=== PATIENT | male | born 1965 | race Caucasian/White ===

== ENCOUNTER 2019-10-09 05:04 | Inpatient (IN) ==
--- NOTE | 2019-09-24 12:09 | PAT Medication Instructions ---
Medication Instructions Date of Service September 24, 2019 Home Medications diphenhydramine-acetaminophen [Tylenol PM Extra Strength] 3 - 4 tab PO HS PRN hydrochlorothiazide 25 mg PO QAM ibuprofen 800 mg PO UD PRN losartan 100 mg PO QAM ASK your surgeon for instructions ibuprofen 800 mg PO UD PRN DO NOT take the morning of surgery hydrochlorothiazide 25 mg PO QAM losartan 100 mg PO QAM Take evening before surgery diphenhydramine-acetaminophen [Tylenol PM Extra Strength] 3 - 4 tab PO HS PRN (if needed) Other Notes If you have any questions please call us at [phone] or [phone] or [phone] or [phone]
--- NOTE | 2019-09-25 13:53 | Anesthesiology Consultation ---
Date of Service September 25, 2019 Assessment & Plan (1) Encounter for pre-operative examination: PCP clearance 10/02/2019: "Patient presents for medical clearance for bilateral knee replacement on 10/09/2019. He was cleared by cardiology. We reviewed his blood work and chest x-ray. Patient considered low risk for upcoming procedure and is medically cleared." Cardiology clearance 09/06/2019: Patient has no cardiovascular symptoms. According to the ACC guidelines: RCRI class I: Approximately 0.4% risk of a major cardiovascular event with surgical intervention. Also with moderate activity (4-10 METS) class IIb indication that no further testing is required. Patient is low risk for bilateral knee replacement 10/08/2019. Chart Review Chart Review: Acceptable Risk for Surgery and Patient seen in Pre Admission Testing Teaching & Discussion Instructed NPO after midnight before surgery, except medications with 15 cc of water. Medication instructions provided according to the PAT guidelines. History Surgery Operation Date: 10/09/19 07:15 Proposed Procedures p Bilateral Total Knee Arthroplasty - Tremayne Gould, Height/Weight Height: 5 ft 8.5 in Weight: 87.3 kg Allergies Allergy/AdvReac Type Severity Reaction Status Date / Time etodolac Allergy Unknown ITCHINESS Verified 09/18/19 09:22 morphine AdvReac vomiting Verified 09/25/19 13:51 LODINE Allergy Unknown ITCHINESS Uncoded 09/18/19 09:05 Medications Home Medications Medication Instructions Recorded Confirmed Last Taken diphenhydramine-acetaminophen 3 - 4 tab PO HS PRN 09/18/19 09/18/19 Unknown [Tylenol PM Extra Strength] hydrochlorothiazide 25 mg PO QAM 09/18/19 09/18/19 09/18/19 ibuprofen 800 mg PO UD PRN 09/18/19 09/18/19 Unknown losartan 100 mg PO QAM 09/18/19 09/18/19 09/18/19 Past Medical History Medical History (Updated 10/03/19 @ 13:39 by Roberto Morris) Arthritis Hypertension Mild pulmonary hypertension Ochronosis 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 Pt seen by cardio prior to surgery for echo as disease can have cardiac manifestations. Echo normal other than mild PHTN Exercise / Class Metabolic Activity II 4-5 Yardwork/Stairs/Walk up hill (Denies CP or SOB with 1 FOS, does flight of 16 steps few times per day at home) Past Surgical History Surgical History History of appendectomy History of arthroplasty of right shoulder History of arthroscopy of right knee History of colonoscopy Past Anesthesia History No Hx of Anesthesia Complications History of PONV History of PONV (with TSA, maybe r/t morphine) Social History Smoking Status: Current every day smoker tobacco type: cigarettes Smoking cigarettes per day: 0.5PPD/ADVISED NPO Do You Dip or Chew Tobacco: No Hx Alcohol Use: Yes alcohol intake frequency: a few times a month Hx Substance Use: No substance use type: does not use Review of Systems Pt denies any recent chest pain, shortness of breath, palpitations, cough, fever or URI. Physical Exam Vital Signs BP: 114/81 P: 93bpm SPO2: 97% RA T: 98.5 F R: 16 ENMT Mouth: + dentition abnormality (missing several molars); no dental restorations, no chipped teeth and no loose teeth Thyromental Distance: > or= 3.5 Finger Breadths (4) Mallampati Class: III Neck normal visual inspection; neck extension not limited Respiratory normal respiratory effort Auscultation: lungs clear to auscultation bilaterally Cardiovascular Rate/Rhythm: regular rate and regular rhythm Heart Sounds: no murmur Vessels: no carotid bruit Testing Laboratory Results 09/25/19 14:03 09/25/19 14:03 PT 10.3 Seconds (9.0-12.0) 09/25/19 14:03 INR 1.0 (0.9-1.1) 09/25/19 14:03 APTT 27.5 Seconds (21.0-31.0) 09/25/19 14:03 Hemoglobin A1c 5.2 % (4.5-5.6) 09/25/19 14:03 Urine Color Yellow 09/25/19 14:03 Urine Appearance Clear (Clear) 09/25/19 14:03 Urine pH 5.5 (4.5-7.5) 09/25/19 14:03 Ur Specific [place] 1.018 (1.000-1.030) 09/25/19 14:03 Urine Protein Negative (Negative) 09/25/19 14:03 Urine Glucose (UA) Negative (Negative) 09/25/19 14:03 Urine Ketones Negative (Negative) 09/25/19 14:03 Urine Nitrite Negative (Negative) 09/25/19 14:03 Ur Leukocyte Esterase Trace (Negative) H 09/25/19 14:03 Urine WBC (Auto) 1-5 /hpf (0-5) 09/25/19 14:03 Urine RBC (Auto) 5-10 /hpf (0-4) H 09/25/19 14:03 U Hyaline Cast (Auto) 0 /lpf (0-5) 09/25/19 14:03 U Epithel Cells (Auto) 0-5 /lpf (0-5) 09/25/19 14:03 Urine Bacteria (Auto) Negative (Negative) 09/25/19 14:03 Blood Type A Positive 09/25/19 14:03 Antibody Screen NEGATIVE 09/25/19 14:03 Electrocardiogram Date: 09/06/19 Findings: + NSR @ (99bpm) Chest X-Ray Date: 09/25/19 Findings: + NAD Echocardiogram Date: 09/19/19 EF: 58% LVEF normal. Mild diastolic dysfunction. Impaired LV relaxation. Normal RV size and systolic function. Trileaflet aortic valve. The aortic cusps appear mildly thickened. Normal pulmonary artery size with estimated PASP 35 mmHg. Consistent with mild pulmonary hypertension. There is no significant valvular heart disease.
--- NOTE | 2019-09-25 14:28 | XRay Report ---
XR chest Pre-admission PA/Lat CLINICAL HISTORY: 53 years-old Male presenting with preoperative assessment. TECHNIQUE: PA and lateral views of the chest were obtained. COMPARISON: None. FINDINGS: Cardiomediastinal silhouette normal. Lungs and pleural spaces clear. Degenerative changes of the thor acic spine. Partially visualized right shoulder arthroplasty. Upper abdomen normal. IMPRESSION: 1. No acute cardiopulmonary disease. ACT 112: Negative or not required by law. Electronically signed by: Stephen Delgado M.D. 09/25/2019 2:26 PM
[2019-09-25 15:44] LABS: Basophils # (auto) 0.06 K/uL (0-0.2); Basophils % (auto) 0.9 %; Eosinophils # (auto) 0.28 K/uL (0-0.5); Hematocrit (blood only) 42.4 % (42-52); Hemoglobin 14.8 g/dL (14.0-18.0); Immature Granulocytes # (auto) 0.01 K/uL (0.00-0.02); Immature Granulocytes % (auto) 0.1 %; Lymphocytes # (auto) 1.87 K/uL (1.2-3.4); Lymphocytes % (auto) 26.7 %; Mean Corpuscular Hemoglobin 32.5 pg (25-34); Mean Corpuscular Hgb Conc 34.9 g/dL (32-36); Mean Platelet Volume 9.6 fL (7.4-10.4); Monocytes # (auto) 0.49 K/uL (0.11-0.59); Neutrophils % (auto) 61.3 %; Platelet Count 313 K/uL (130-400); RDW Coefficient of Variation 13.2 % (11.5-14.5); RDW Standard Deviation 44.9 fL (36.4-46.3); Red Blood Count 4.56 M/uL (4.7-6.1); White Blood Count 7.01 K/uL (4.8-10.8)
[2019-09-25 16:04] LABS: Partial Thromboplastin Time 27.5 Seconds (21.0-31.0); Prothrombin Time 10.3 Seconds (9.0-12.0)
[2019-09-25 16:39] LABS: Appearance Urine Clear (Clear); Bacteria Urine Automated Negative (Negative); Bilirubin Urine Negative (Negative); Blood Urine Negative (Negative); Cast Urine Automated 0 /lpf (0-5); Color Urine Yellow; Epithelial Cell Urine Auto 0-5 /lpf (0-5); Glucose Urine UA Negative (Negative); Ketones Urine Negative (Negative); Leukocyte Esterase Urine Trace (Negative); Nitrite Urine Negative (Negative); Protein Urine Negative (Negative); Specific Gravity Urine 1.018 (1.000-1.030); Urobilinogen Urine Negative (Negative); pH Urine 5.5 (4.5-7.5)
[2019-09-25 16:50] LABS: Calcium 9.5 mg/dl (8.5-10.1); Creatinine Clr Calc Pharmacy 106.5 ml/min; Est GFR (African American) 114.5; Est GFR (Non-African American) 98.8; Potassium 3.9 mmol/L (3.5-5.1)
[2019-09-26 06:26] LABS: Estimated Average Glucose 103 mg/dl; Hemoglobin A1C 5.2 % (4.5-5.6)
--- NOTE | 2019-10-07 11:02 | History & Physical Report ---
Date of Service October 07, 2019 Assessment & Plan (1) Degenerative joint disease of left knee: (2) Degenerative joint disease of knee, right: I have indicated the patient for bilateral total knee replacements. The risks, benefits and complications of surgery were explained to the patient which include but not limited to infection, acute blood loss, DVT/PE, injury to nerves, vessels, bone, soft tissue, arthrofibrosis, chronic pain, failure of the prosthesis, knee dislocation, leg length discrepancy, need for additional surgery, cardiac and pulmonary events and . The patient wished to proceed with surgery and informed consent was obtained at this time. We will plan for lovenox post-operatively for DVT prophylaxis. Upon discharge the patient will be discharged home with home health services. Appropriate clearances by PCP, cardio were obtained. Due to the large amount of HO posterior right knee we have asked vascular be available on day of surgery. MRI scan was obtained and reviewed pre-operatively History of Present Illness Chief Complaint: Bilateral knee pain/djd, osteochondromatosis Primary Care Provider: Sarah Loredo The patient is a 53 year old male who presents with complaints of severe bilateral knee pain and DJD. The patient has failed outpatient conservative treatments to this point which included NSAIDs, corticosteroid injections, PT and a home exercise walking program. The patient's pain and limited function have progressed to the point where they severely hinder their activities of daily living and they no longer tolerate exercise programs. They are requesting to proceed with bilateral total knee replacement surgery. Allergies Allergy/AdvReac Type Severity Reaction Status Date / Time etodolac Allergy Mild ITCHINESS Verified 10/09/19 05:32 morphine AdvReac Intermediate vomiting Verified 10/09/19 05:32 LODINE Allergy Mild ITCHINESS Uncoded 10/09/19 05:32 Home Medications Home Medications Medication Instructions Recorded Confirmed Type diphenhydramine-acetaminophen 3 - 4 tab PO HS PRN 09/18/19 10/09/19 History [Tylenol PM Extra Strength] hydrochlorothiazide 25 mg PO QAM 09/18/19 09/18/19 History ibuprofen 800 mg PO UD PRN 09/18/19 10/09/19 History losartan 100 mg PO QAM 09/18/19 09/18/19 History zponogtn-vlt-awklt-vit K-lycop 1 tab PO DAILY 10/09/19 10/09/19 History [Men's Multivitamin] Past Med/Surg History Medical History Arthritis Hypertension Mild pulmonary hypertension Ochronosis 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 Pt seen by cardio prior to surgery for echo as disease can have cardiac manifestations. Echo normal other than mild PHTN Surgical History History of appendectomy History of arthroplasty of right shoulder History of arthroscopy of right knee History of colonoscopy Social History Preferred Language: Portuguese Communication Ability: Effective Cab Supervisor Required: No Beliefs That Will Affect Care: None Current Living Situation: Family Other Information That Helps Us Care for You: Yes (15 STEPS AT HOME) Feels Safe at Home: Yes Smoking Status: Current every day smoker Tobacco Type: cigarettes ; Cigarettes Per Day: 0.5PPD/ADVISED NPO ; Do You Dip or Chew Tobacco: No ; Hx Alcohol Use: Yes Hx Substance Use: No Review of Systems Review of Systems: All systems reviewed & are unremarkable except as noted in HPI & below Constitutional: as per Subjective / HPI Physical Exam Physical Exam: LLE NVSI +EHL/FHL/TA/GS SILT grossly, +2 DP pulse, compartments soft NT, limited painful ROM, 0-105 degrees flexion, + creptius. RLE NVSI +EHL/FHL/TA/GS SILT grossly, +2 DP pulse, compartments soft NT, limited painful ROM, 0-110 degrees flexion, + crepitus. Constitutional: WD/WN, vitals as above Eyes: PERRL, conjunctivae normal, anicteric sclerae ENMT: external ear and nose normal, oropharynx normal Neck: trachea midline, no thyromegaly Respiratory: normal respiratory effort, lungs clear to auscultation Cardiovascular: RRR, no murmur, no edema Gastrointestinal (Abdomen): normal bowel sounds, soft, nontender, no hepatosplenomegaly Musculoskeletal: no cyanosis or clubbing, extremities motor strength 5/5 Skin: no rashes, warm and dry Neurologic: patellar DTR's 2+ bilat, sensation intact Psychiatric: A+Ox3, euthymic affect Lymphatic: no cervical or axillary lymphadenopathy Results & Data Diagnostic Findings Multiple views of bilateral knees demonstrates severe tricompartmental DJD with complete loss of the lateral and PF joint space. +osteophytes, +sclerosis, +subchondral cysts, +osteochondromatosis.
[2019-10-09] MEDS ORDERED: CEFAZOLIN 2000MG 2,000 MG/15 ML SYR IV SCH (06:00)
[2019-10-09] MEDS ORDERED: METOCLOPRAMIDE HCL 10 MG TABLET PO SCH (06:00)
[2019-10-09] MEDS ORDERED: ACETAMINOPHEN 500 MG TAB PO SCH (06:00)
[2019-10-09] MEDS ORDERED: GABAPENTIN 300 MG CAP PO SCH (06:00)
[2019-10-09] MEDS ORDERED: FAMOTIDINE 20 MG TAB PO SCH (06:00)
[2019-10-09] MEDS ORDERED: TRANEXAMIC ACID 1,000 MG **IV Intra-op IV SCH (06:00)
[2019-10-09] MEDS ORDERED: TRANEXAMIC ACID 1,000 MG **IV Pre-op IV SCH (06:00)
[2019-10-09] MEDS ORDERED: LR 500ML BOLUS, THEN 15ML/HR IV SCH (06:00)
[2019-10-09] MEDS ORDERED: CeleBREX 200 MG CAP PO SCH (06:00)
[2019-10-09] MEDS ORDERED: ROPIVACAINE 0.5% HCL/PF 150 MG, BUPIVACAINE 0.5% MPF 30 ML, EPINEPHrine 30MG/30ML (OR U... INSTIL SCH ×2 (06:00)
[2019-10-09] MEDS ORDERED: dexAMETHasone 4 MG TAB PO SCH (06:00)
[2019-10-09] MEDS ORDERED: METOCLOPRAMIDE HCL 10 MG TABLET ONE (06:20)
[2019-10-09] MEDS ORDERED: ROPIVACAINE 0.5% 5 MG/ML 30 ML VIAL ONE (06:34)
[2019-10-09] MEDS ORDERED: BUPIVACAINE 0.5 % 5 MG/1 ML PF 10ML VIAL ONE (06:34)
[2019-10-09] MEDS ORDERED: MIDAZOLAM HCL 1 MG/ML 2ML VIAL ONE ×2 (06:51→09:26)
[2019-10-09] MEDS ORDERED: PROPOFOL IV EMULSION 10 MG/ML 20 ML VIAL IV ONE ×5 (06:51→10:57)
[2019-10-09] MEDS ORDERED: ONDANSETRON INJ 2 MG/ML 2 ML VIAL IV PRN (06:55)
[2019-10-09] MEDS ORDERED: ATROPINE SULFATE 0.1 MG/ML 10ML SYR IV PRN (06:55)
[2019-10-09] MEDS ORDERED: ePHEDrine sulfate 50 MG/ML AMP IV PRN (06:55)
[2019-10-09] MEDS ORDERED: HYDROmorphone INJ 1 MG/ML SYRINGE IV PRN (06:55)
[2019-10-09] MEDS ORDERED: BACITRACIN INJ 50,000 UNIT VIAL ONE ×2 (07:00→09:52)
--- NOTE | 2019-10-09 07:00 | History & Physical Bridge Note ---
Date of Service October 09, 2019 History & Physical Bridge Note I have examined the patient, reviewed the History & Physical and in the interval since the performance of the History & Physical I have noted the following changes of clinical significance: no changes noted
[2019-10-09] MEDS ORDERED: fentaNYL citrate 100 MCG/2 ML VIAL ONE (09:23)
[2019-10-09] MEDS ORDERED: KETAMINE HCL INJ 50 MG/ML 10 ML VIAL ONE (09:26)
--- NOTE | 2019-10-09 11:20 | Post Operative Brief Note ---
Immediate Post Op Note v1 Date of Surgery October 09, 2019 Pre & Post Diagnosis Operation Date: 10/09/19 07:15 Pre-Op Diagnosis: BILATERAL KNEE OSTEOARTHRITIS Post-Op Diagnosis: BILATERAL KNEE OSTEOARTHRITIS I identified the patient and participated in the time-out.: Yes Procedure Operation Date: 10/09/19 07:15 Actual Procedures p Bilateral Total Knee Arthroplasty(Bilateral) - Tremayne Gould DO Surgeon Tremayne Gould DO [facility]merer Helper Brett Patel Estimated Blood Loss 140 (75cc right, 65cc left) Findings Consistent with Post-Op Diagnosis Fluids 900 cc LR Specimens L Knee -distal femur and proximal tibia bone cuts, multiple intra-capsular loose bodies, synovial tissue R knee -distal femur and proximal tibia with multiple intracapsular loose bodies and synovial tissue Drains Bravo Catheter Complications none Disposition Disposition: Recovery Room Overlapping Procedure I was present for: the critical portions of procedure. I was immediately available: during the entire case. Back up surgeon: was not required during procedure.
--- NOTE | 2019-10-09 11:26 | Operative Report ---
Post Operative Report Pre & Post Diagnosis Operation Date: 10/09/19 07:15 Pre-Op Diagnosis: BILATERAL KNEE OSTEOARTHRITIS Post-Op Diagnosis: BILATERAL KNEE OSTEOARTHRITIS I identified the patient and participated in the time-out.: Yes Procedure Operation Date: 10/09/19 07:15 Actual Procedures p Bilateral Total Knee Arthroplasty(Bilateral) - Tremayne Gould DO Surgeon Tremayne Gould DO [employer] Working Supervisor Brett Patel Estimated Blood Loss 140 (75cc right, 65cc left) Findings Consistent with Post-Op Diagnosis Fluids 900 cc LR Specimens R knee: proximal tibia and distal femur bone fragments L knee: proximal tibia and distal femur bone fragments Anesthesia Type Spinal MAC Complications none Disposition Disposition: Recovery Room Indications The patient is a 53 year old male who presents with complaints of severe bilateral knee pain and DJD with chronic osteochondromatosis and multiple intra- articular loose bodies. The patient has failed outpatient conservative treatments to this point which included NSAIDs, corticosteroid injections, PT and a home exercise walking program. The patient's pain and limited function have progressed to the point where they severely hinder their activities of daily living and they no longer tolerate exercise programs. They are requesting to proceed with bilateral total knee replacement surgery. I have indicated the patient for bilateral total knee replacements. The risks, benefits and complications of surgery were explained to the patient which include but not limited to infection, acute blood loss, DVT/PE, injury to nerves, vessels, bone, soft tissue, arthrofibrosis, chronic pain, failure of the prosthesis, knee dislocation, leg length discrepancy, need for additional surgery, cardiac and pulmonary events and . The patient wished to proceed with surgery and informed consent was obtained at this time. We will plan for lovenox post-operatively for DVT prophylaxis. Upon discharge the patient will be discharged home with home health services. Appropriate clearances by PCP, cardio were obtained. Due to the large amount of HO posterior right knee we have asked vascular be available on day of surgery. MRI scan was obtained and reviewed pre-operatively Description of Procedure COMPONENTS USED: Right knee: Alyce persona knee system: Femur size 11, Tibia size G tibial articulating surface 12 CPS, Patella 34 oval button Left knee: Alyce persona knee system: Femur size 10, Tibia size H tibial articulating surface 14 CPS, Patella 34 oval button Following induction of spine anesthesia, a tourniquet was applied to the proximal aspect of the patient's bilateral thighs and bilateral lower extremities prepped and draped in the usual sterile manner. A timeout was performed, patient identified and site baylee confirmed. Appropriate pre- operative IV antibiotics were given. The right limb was exsanguinated with an Esmarch bandage and tourniquet was inflated to 300 mmHg. A longitudinal midline incision was made over the anterior knee. Subcutaneous tissue was sharply dissected down to fascia. Electrocautery was used for hemostasis. Next a p arapatellar arthrotomy was performed. Patella was everted and the knee was flexed. There was significant hypertrophic synovium with synovitis. All articular cartilage and residual meniscus was either discolored or completely black in appearance with multiple loose bodies. A Dahl retractor was used to expose the synovium above on the anterior aspect of the femur and removed down to bone. Next, the anterior fat pad was removed to aid in visualization. The medial face of the tibia was cleared of soft tissue first with a Bovie and a gonsalez elevator. This tissue was retracted posteriorly using a blunt Hohmann. Extensive synovectomy was performed and multiple loose bodies were removed during this time. Next, the extra-medullary tibial cutting guide was placed to the anterior aspect of the tibia. The tibia resection level was set taking 2mm from the defective tibial condyle. Resection depth was once again confirmed with venecia wing. The medial and lateral collateral ligament was protected with two Hohmann retractors. The tibia guide was removed and proximal tibial bone fragment removed utilizing straight osteotome, electrocautery and Mabel. Next, the distal femur intramedullary canal was accessed utilizing the step drill. The intramedullary distal femur cutting guide was placed into the canal and pinned into place. The distal femur was cut on the 5 degree setting. Next the cutting guide was removed and the femur was sized. Care was taken to ensure appropriate ocular care aide all rotation and 5 degree holes were drilled. A size 11 4-in-1 cutting block was placed on the distal end of the femur and secured into place with two short headed screws. Two bent Hohmann retractors were placed to protect the medial and lateral collateral ligaments. The oscillating saw was used to cut anterior, posterior, anterior chamfer and posterior chamfer. The four and one cutting block was removed and bone fragments excised. Laminar propulsion engineer was placed laterally and the ACL and PCL were removed followed by the medial meniscus and posterior medial osteophytes. Aquamantys was utilized for any posterior medial bleeders and Orthomix injected into the posterior medial capsule. A laminar propulsion engineer was then placed in the medial compartment and the lateral meniscus and posterior osteophytes were removed. Aquamantys was utilized for any posterior lateral bleeders and Orthomix injected into the posterior lateral capsule. Next, drop nalini and spacer block were placed with the leg in flexion and extension to assess alignment and flexion/extension gaps. Next, the proximal tibia was assessed and two bent Hohmans were placed medial and lateral to aid in visualization. The appropriate tibia size and rotation was selected and a size G tibial plate was pinned into place with appropriate rotation. Preparation of the tibia was completed utilizing the matching tibial drill and broach. I then turned my attention back to the distal femur in a trial femoral component was impacted into place. Appropriate femoral width was assessed and selected. Next the femur PS box cut guide was placed and cut made with the reciprocal saw and the PS box provisional placed. A trial size 12 PS tibia articular tray was placed and varus-valgus balance assessed in 0 degrees of extension and 30, 60 and 90 degrees of flexion. A final tibial articular surface size 12 CPS was chosen. Assess was gained to the patella and caliper utilized to measure width. The patella reamer was utilized and remaining bone removed with oscillating saw. A size 34 oval patella button was selected and the patella pegs drilled. Trial patella button was placed and tracking was assessed. The knee was found to be well balanced, well aligned with excellent patella tracking. The trials were removed and final components were obtained and assembled. The knee was irrigated copiously with sterile saline solution mixed with bacitracin. Access to the proximal tibia was once again obtained utilizing to the Hohmans and the proximal tibia and distal femur were dried with lap sponges. The final components were cemented into place and all excess cement was removed. A trial tibial articular surface was placed while cemented hardened. Knee stability was once again assessed and the final component inserted. A Betadine soak was performed. After 3 minutes, the hip was once more irrigated with copious sterile saline solution with bacitracin. The knee was injected with half of the remaining Orthomix which includes a combination of Ropivicaine 0.5% 150mg, Bupivicaine 0.5%/Epinephrine 1:200,000 30ml, Toradol 30mg, Dexamethasone 4mg, Ketamine 10mg, Clonidine 100mcg and NSS 30ml solution. The capsulotomy was closed with #1 Vicryl followed by subcutaneous closure with 2-0 Vicryl suture . Skin closure was performed using elgin and a sterile dressing applied which included Silverlon, Webril and janey wrap. Tourniquet was deflated at 117 minutes. The patient tolerated the procedure well and was stable per anesthesia and the decision was made to continue with left total knee arthroplasty. A second timeout was performed, patient identified and site baylee confirmed. The left limb was exsanguinated with an Esmarch bandage and tourniquet was inflated to 300 mmHg. A longitudinal midline incision was made over the anterior knee. Subcutaneous tissue was sharply dissected down to fascia. Electrocautery was used for hemostasis. Next a parapatellar arthrotomy was performed. Patella was everted and the knee was flexed. There was significant hypertrophic synovium with synovitis. All articular cartilage and residual meniscus was either discolored or completely black in appearance with multiple loose bodies, similar to his right side. A Dahl retractor was used to expose the synovium above on the anterior aspect of the femur and removed down to bone. Next, the anterior fat pad was removed to aid in visualization. The medial face of the tibia was cleared of soft tissue first with a Bovie and a gonsalez elevator. This tissue was retracted posteriorly using a blunt Hohmann. Extensive synovectomy was performed and multiple loose bodies were removed during this time. Next, the extra-medullary tibial cutting guide was placed to the anterior aspect of the tibia. The tibia resection level was set taking 2mm from the defective tibial condyle. Resection depth was once again confirmed with venecia wing. The medial and lateral collateral ligament was protected with two Hohmann retractors. The tibia guide was removed and proximal tibial bone fragment removed utilizing straight osteotome, electrocautery and Mabel. Next, the distal femur intramedullary canal was accessed utilizing the step drill. The intramedullary distal femur cutting guide was placed into the canal and pinned into place. The distal femur was cut on the 5 degree setting. Next the cutting guide was removed and the femur was sized. Care was taken to ensure appropriate ocular care aide all rotation and 5 degree holes were drilled. A size 10 4-in-1 cutting block was placed on the distal end of the femur and secured into place with two short headed screws. Two bent Hohmann retractors were placed to protect the medial and lateral collateral ligaments. The oscillating saw was used to cut anterior, posterior, anterior chamfer and posterior chamfer. The four and one cutting block was removed and bone fragments excised. Laminar propulsion engineer was placed laterally and the ACL and PCL were removed followed by the medial meniscus and posterior medial osteophytes. Aquamantys was utilized for any posterior medial bleeders and Orthomix injected into the posterior medial capsule. A laminar propulsion engineer was then placed in the medial compartment and the lateral meniscus and posterior osteophytes were removed. Aquamantys was utilized for any posterior lateral bleeders and Orthomix injected into the posterior lateral capsule. Next, drop nalini and spacer block were placed with the leg in flexion and extension to assess alignment and flexion/extension gaps. Next, the proximal tibia was assessed and two bent Hohmans were placed medial and lateral to aid in visualization. The appropriate tibia size and rotation was selected and a size H tibial plate was pinned into place with appropriate rotation. Preparation of the tibia was completed utilizing the matching tibial drill and broach. I then turned my attention back to the distal femur in a trial femoral component was impacted into place. Appropriate femoral width was assessed and selected. Next the femur PS box cut guide was placed and cut made with the reciprocal saw and the PS box provisional placed. A trial size 12 PS tibia articular tray was placed and varus-valgus balance assessed in 0 degrees of extension and 30, 60 and 90 degrees of flexion. A final tibial articular surface size 14 CPS was chosen. Assess was gained to the patella and caliper utilized to measure width. The patella reamer was utilized and remaining bone removed with oscillating saw. A size 34 oval patella button was selected and the patella pegs drilled. Trial patella button was placed and tracking was assessed. The knee was found to be well balanced, well aligned with excellent patella tracking. The trials were removed and final components were obtained and assembled. The knee was irrigated copiously with sterile saline solution mixed with bacitracin. Access to the proximal tibia was once again obtained utilizing to the Hohmans and the proximal tibia and distal femur were dried with lap sponges. The final components were cemented into place and all excess cement was removed. A trial tibial articular surface was placed while cemented hardened. Knee stability was once again assessed and the final component inserted. A Betadine soak was performed. After 3 minutes, the hip was once more irrigated with copious sterile saline solution with bacitracin. The knee was injected with the rem aining Orthomix which includes a combination of Ropivicaine 0.5% 150mg, Bupivicaine 0.5%/Epinephrine 1:200,000 30ml, Toradol 30mg, Dexamethasone 4mg, Ketamine 10mg, Clonidine 100mcg and NSS 30ml solution. The capsulotomy was closed with #1 Vicryl followed by subcutaneous closure with 2-0 Vicryl suture . Skin closure was performed using elgin and a sterile dressing applied which included Silverlon, Webril and janey wrap. Tourniquet was deflated at 99 minutes. The patient tolerated the procedure well and was taken to the PACU in stable condition. Due to the complex nature of the procedure, the entire surgery was performed with the operational assistance of Brett patel PA-C. The traffic assistant, under direct supervision, was involved in the actual performance of all aspects of the surgical procedure including patient positioning, hemostasis, tissue retraction, instrument management and wound closure. I attest to the content of the Intraoperative Record and any orders documented therein. Any exceptions are noted below.
--- NOTE | 2019-10-09 12:07 | XRay Report ---
LEFT KNEE 2 VIEWS History: Left total knee arthroplasty. Degenerative arthritis. Postop. FINDINGS: The patient is status post a left total knee arthroplasty. The hardware is intact. No fract ure or dislocation. Skin elgin are in place. IMPRESSION: Left total knee arthroplasty. No evidence for hardware complication. ACT 112: Negative or not required by law. Electronically signed by: Antonio Son M.D. 10/09/2019 12:05 PM
--- NOTE | 2019-10-09 12:07 | XRay Report ---
RIGHT KNEE 2 VIEWS History: Right total knee arthroplasty. Degenerative arthritis. Postop. FINDINGS: The patient is status post a right total knee arthroplasty. The hardware is intact. No frac ture or dislocation. Skin elgin are in place. IMPRESSION: Right total knee arthroplasty. No evidence for hardware complication. ACT 112: Negative or not required by law. Electronically signed by: Antonio Son M.D. 10/09/2019 12:05 PM
--- NOTE | 2019-10-09 12:41 | Anesthesiology Progress Note ---
Date of Service October 09, 2019 Anesthesia Post Procedure Vital Signs Vital Signs: Temp Pulse Pulse Resp BP Pulse Ox 10/09/19 12:20 36.5 C 87 18 145/108 H 100 10/09/19 12:10 85 17 138/104 H 100 10/09/19 12:00 94 H 17 138/108 H 100 10/09/19 11:50 95 H 15 127/112 H 100 10/09/19 11:42 36.6 C 89 91 H 15 143/107 H 99 10/09/19 05:45 36.8 C 91 H 18 152/104 H 99 Pain Intensity Generalized: Pain Intensity: 3 Transfer of Care Handoff Completed per policy Notes Mental Status: alert / awake / arousable Patient Amnestic to Procedure: Yes Nausea / Vomiting: adequately controlled Pain: adequately controlled Airway Patency, RR, SpO2: stable & adequate BP & HR: stable & adequate Hydration State: stable & adequate Neuraxial Anesthesia: was administered and sensory block is resolving Anesthetic Complications: no major complications apparent
[2019-10-09] MEDS ORDERED: NALOXONE HCL 0.4 MG/1 ML VIAL/CARP IV PRN (12:45)
[2019-10-09] MEDS ORDERED: MAGNESIUM HYDROXIDE SUSP 30 ML UDC PO PRN (12:45)
[2019-10-09] MEDS ORDERED: bisacodyL 10 MG SUPP PR PRN (12:45)
[2019-10-09] MEDS: ACETAMINOPHEN 500 MG TAB PO SCH ×2 (13:58→21:44)
[2019-10-09] MEDS: SODIUM CHLORIDE 0.9% 1000ML 1,000 ML IV SCH ×2 (13:59→21:52)
[2019-10-09] MEDS: CEFAZOLIN 2000MG 2,000 MG/15 ML SYR IV SCH (16:25)
[2019-10-09] MEDS: DOCUSATE SODIUM 100 MG CAP PO SCH (20:19)
[2019-10-09] MEDS: SENNA 8.6 MG TAB PO SCH (20:19)
--- NOTE | 2019-10-09 21:49 | Orthopedic Progress Note ---
Date of Service October 09, 2019 Assessment & Plan (1) Degenerative joint disease of left knee: (2) Degenerative joint disease of knee, right: s/p bilateral TKA -ancef x 24 -DVT ppx: SCDs, TEDs, Lovenox daily -WBAT B/L LE -PT/OT -RLE paraesthesia/foot drop likely residual local/regional anesthesia, continue to monitor -Ice/elevation B/L LE -PO XR demonstrates well aligned well fixed bilateral prothesis without fracture/dislocation -am labs -DC planning Admission and Anticipated Discharge Date Admission Date: October 09, 2019 Subjective Post Operative Progress Note Patient seen sitting up in bed, comfortable, denies complaints, pain well controlled, no acute issues. Still feeling effects of local/regional anesthesia Review of Systems Review of Systems: All systems reviewed & are unremarkable except as noted in HPI & below Constitutional: as per Subjective / HPI Physical Exam Physical Exam: LLE NVSI +EHL/FHL/TA/GS SILT grossly, +2 DP pulse, compartments soft NT, dressing cdi. RLE NVSI FHL/GS decreased sensation plantar aspect right foot, +foot drop, +2 DP pulse, compartments soft NT, dressing cdi. Constitutional: WD/WN, vitals as above Results & Data ([facility]) Vital Signs (Past 12 Hours) Vital Signs Temp Pulse Pulse Resp BP Pulse Ox 10/09/19 19:18 36.7 C 114 H 16 122/87 99 10/09/19 15:40 36.8 C 108 H 16 137/87 99 10/09/19 14:24 114 H 18 134/87 98 10/09/19 13:33 88 18 150/108 H 100 10/09/19 13:01 89 18 146/107 H 100 10/09/19 12:35 36.6 C 91 H 18 136/94 100 10/09/19 12:20 36.5 C 87 18 145/108 H 100 10/09/19 12:10 85 17 138/104 H 100 10/09/19 12:00 94 H 17 138/108 H 100 10/09/19 11:50 95 H 15 127/112 H 100 10/09/19 11:42 36.6 C 89 91 H 15 143/107 H 99
[2019-10-10] MEDS: CEFAZOLIN 2000MG 2,000 MG/15 ML SYR IV SCH (00:16)
[2019-10-10] MEDS: ACETAMINOPHEN 500 MG TAB PO SCH ×3 (06:01→22:04)
[2019-10-10] MEDS: OXYCODONE HCL IR 5 MG TAB (IMMEDIATE RELEASE) PO PRN ×5 (06:04→22:02)
[2019-10-10 06:07] LABS: Hematocrit (blood only) 29.5 % (42-52); Hemoglobin 9.9 g/dL (14.0-18.0); Mean Corpuscular Hemoglobin 31.9 pg (25-34); Mean Corpuscular Hgb Conc 33.6 g/dL (32-36); Mean Corpuscular Volume 95.2 fL (80-100); Mean Platelet Volume 8.9 fL (7.4-10.4); Platelet Count 273 K/uL (130-400); RDW Coefficient of Variation 13.5 % (11.5-14.5); RDW Standard Deviation 46.4 fL (36.4-46.3); White Blood Count 10.64 K/uL (4.8-10.8)
[2019-10-10 06:45] LABS: BUN Creatinine Ratio 19.3 (10-20); Calcium 8.6 mg/dl (8.5-10.1); Creatinine Clr Calc Pharmacy 134.4 ml/min; Est GFR (African American) 125.8; Est GFR (Non-African American) 108.5; Potassium 3.8 mmol/L (3.5-5.1)
--- NOTE | 2019-10-10 08:36 | Orthopedic Progress Note ---
Date of Service October 10, 2019 Assessment & Plan (1) Degenerative joint disease of left knee: (2) Degenerative joint disease of knee, right: s/p bilateral TKA POD#1 -ancef x 24 -DVT ppx: SCDs, TEDs, Lovenox daily -WBAT B/L LE -PT/OT -RLE paraesthesia/foot drop resolved -Ice/elevation B/L LE -PO XR demonstrates well aligned well fixed bilateral prothesis without fracture/dislocation -am labs hgb 9.9, see above -DC planning - home with HH Admission and Anticipated Discharge Date Admission Date: October 09, 2019 Subjective Post Operative Progress Note Patient seen sitting up in bed, comfortable, denies complaints, pain well controlled, no acute issues. Numbing medicine wearng off, Denies F/C/N/V/SOB/CP. Review of Systems Review of Systems: All systems reviewed & are unremarkable except as noted in HPI & below Constitutional: as per Subjective / HPI Physical Exam Physical Exam: LLE NVSI +EHL/FHL/TA/GS SILT grossly, +2 DP pulse, compartments soft NT, dressing cdi. RLE NVSI +EHL/FHL/TA/GS SILT grossly, +2 DP pulse, compartments soft NT, dressing cdi. Constitutional: WD/WN, vitals as above Results & Data ([facility]) Vital Signs (Past 12 Hours) Vital Signs Temp Pulse Pulse Resp BP Pulse Ox 10/10/19 07:55 36.8 C 100 H 19 128/86 100 10/10/19 03:05 36.9 C 107 H 18 122/86 98 10/09/19 23:10 36.7 C 117 H 18 122/87 99 Laboratory Results 10/10/19 10/10/19 Range/Units 05:49 05:49 WBC 10.64 (4.8-10.8) K/uL RBC 3.10 L (4.7-6.1) M/uL Hgb 9.9 L (14.0-18.0) g/dL Hct 29.5 L (42-52) % MCV 95.2 (80-100) fL MCH 31.9 (25-34) pg MCHC 33.6 (32-36) g/dL RDW Std Deviation 46.4 H (36.4-46.3) fL RDW Coeff of Kae 13.5 (11.5-14.5) % Plt Count 273 (130-400) K/uL MPV 8.9 (7.4-10.4) fL Sodium 137 (136-145) mmol/L Potassium 3.8 (3.5-5.1) mmol/L Chloride 107 (98-107) mmol/L Carbon Dioxide 27 (21-32) mmol/L Anion Gap 3.0 (3-11) BUN 14 (7-18) mg/dl Creatinine 0.70 (0.6-1.4) mg/dl Est Cr Clr Drug Dosing 134.4 ml/min Est GFR ( Amer) 125.8 Est GFR (Non-Af Amer) 108.5 BUN/Creatinine Ratio 19.3 (10-20) Glucose 103 H (70-99) mg/dl Calcium 8.6 (8.5-10.1) mg/dl
[2019-10-10] MEDS: hydroCHLOROthiazide 25 MG TAB PO SCH (08:49)
[2019-10-10] MEDS: LOSARTAN POTASSIUM 50 MG TAB PO SCH (08:49)
[2019-10-10] MEDS: DOCUSATE SODIUM 100 MG CAP PO SCH ×2 (08:49→22:03)
[2019-10-10] MEDS: ENOXAPARIN INJ 40 MG/0.4 ML SYR SQ SCH (08:50)
[2019-10-10] MEDS: MULTIVITAMIN TAB PO SCH (08:53)
[2019-10-10] MEDS: CALCIUM CARBONATE 500 MG CHEWABLE TAB PO PRN (15:03)
[2019-10-10] MEDS: ONDANSETRON INJ 2 MG/ML 2 ML VIAL IV PRN (18:06)
[2019-10-10] MEDS: METOCLOPRAMIDE HCL INJ 5 MG/ML 2 ML VIAL IV PRN (19:19)
[2019-10-10] MEDS: SENNA 8.6 MG TAB PO SCH (22:04)
[2019-10-11] MEDS: CALCIUM CARBONATE 500 MG CHEWABLE TAB PO PRN ×3 (03:36→19:42)
[2019-10-11] MEDS: OXYCODONE HCL IR 5 MG TAB (IMMEDIATE RELEASE) PO PRN ×4 (05:02→22:55)
[2019-10-11] MEDS: ACETAMINOPHEN 500 MG TAB PO SCH ×3 (05:02→21:40)
[2019-10-11 06:04] LABS: Hematocrit (blood only) 23.7 % (42-52); Hemoglobin 8.1 g/dL (14.0-18.0); Mean Corpuscular Hgb Conc 34.2 g/dL (32-36); Mean Corpuscular Volume 93.7 fL (80-100); Platelet Count 225 K/uL (130-400); RDW Coefficient of Variation 13.8 % (11.5-14.5); RDW Standard Deviation 47.4 fL (36.4-46.3); Red Blood Count 2.53 M/uL (4.7-6.1); White Blood Count 10.87 K/uL (4.8-10.8)
[2019-10-11 06:41] LABS: BUN Creatinine Ratio 23.1 (10-20); Calcium 9.3 mg/dl (8.5-10.1); Creatinine Clr Calc Pharmacy 125.5 ml/min; Est GFR (African American) 122.2; Est GFR (Non-African American) 105.5; Potassium 4.1 mmol/L (3.5-5.1)
[2019-10-11] MEDS: ENOXAPARIN INJ 40 MG/0.4 ML SYR SQ SCH (07:56)
[2019-10-11] MEDS: MULTIVITAMIN TAB PO SCH (07:56)
[2019-10-11] MEDS: LOSARTAN POTASSIUM 50 MG TAB PO SCH (07:56)
[2019-10-11] MEDS: DOCUSATE SODIUM 100 MG CAP PO SCH ×2 (07:56→21:39)
[2019-10-11] MEDS: hydroCHLOROthiazide 25 MG TAB PO SCH (07:56)
--- NOTE | 2019-10-11 08:28 | Orthopedic Progress Note ---
Date of Service October 11, 2019 Assessment & Plan (1) Degenerative joint disease of left knee: (2) Degenerative joint disease of knee, right: s/p bilateral TKA POD#2 -Nausea-continue antiemetics. Will add Protonix with complaint of heartburn earlier. Consider narcotic change if patient symptoms persist. -ancef x 24 -DVT ppx: SCDs, TEDs, Lovenox daily -WBAT B/L LE -PT/OT -RLE paraesthesia/foot drop resolved -Ice/elevation B/L LE -PO XR demonstrates well aligned well fixed bilateral prothesis without fracture/dislocation -am labs hgb 8.1; Acute blood loss anemia. Preop hemoglobin was around 14. Plan for EKG this morning. Repeat hemoglobin and hematocrit ordered for later this afternoon. Consider transfusion if patient's symptoms persist or worsen. If there are any EKG changes, plan for medical consult. -DC planning - home with Admission and Anticipated Discharge Date Admission Date: October 09, 2019 Supervising Physician Co-Signing Physician Notes Patient seen and examined, agree with above assessment and plan. PE: RLE NVSI +EHL/FHL/TA/GS SILT grossly, +2 DP pulse, compartments soft NT, dressing cdi. LLE NVSI +EHL/FHL/TA/GS SILT grossly, +2 DP pulse, compartments soft NT, dressing cdi. A/P S/P B/L TKA -medical hospitalist consulted, tachycardia, post-op anemia -WBAT B/L LE -PT/OT -SCDs, TEDs, Lovenox -hgb 7.4, transfuse 2 units PRBC Subjective Postop day 2 status post bilateral total knee arthroplasties. Patient is currently sitting up at the bedside. He actually was reclining on pillows that were stacked up against the bed rail with his legs dangling over the bedside. Patient able to straighten himself up and sit upright without difficulty. He states that he has had a lack of sleep and does feel somewhat tired this morning. States he is having some nausea this morning and nursing also related that he had some heartburn. Current vital signs are showing tachycardia. Patient currently with acute blood loss anemia secondary from surgical loss and possible delusional effect. He denies any shortness of breath, chest pain, lightheadedness. He does state that he feels cold at times. Denies chills or rigors. Having some pain in the knees but appears to be controlled at this time. No other complaints at this time. Review of Systems Review of Systems: All systems reviewed & are unremarkable except as noted in HPI & below Constitutional: as per Subjective / HPI Physical Exam Physical Exam: Patient appears somewhat pale and looking tired. [place] dressings are clean, dry, and intact. Calves are soft nontender. Neurovascular is intact. He has good dorsiflexion and plantarflexion of both ankles and feet at this time. Vital signs show a BP of 134/84, pulse 115, respirations 18, temp 37.1 with O2 sats at 99 on room air. Constitutional: WD/WN, vitals as above Results & Data ([facility]) Vital Signs (Past 12 Hours) Vital Signs Temp Pulse Resp BP Pulse Ox 10/11/19 06:58 37.1 C 115 H 18 134/84 99 10/10/19 22:47 37.2 C 126 H 16 112/68 96 Laboratory Results Laboratory Results WBC 10.87 K/uL (4.8-10.8) H 10/11/19 05:45 RBC 2.53 M/uL (4.7-6.1) L 10/11/19 05:45 Hgb 8.1 g/dL (14.0-18.0) L 10/11/19 05:45 Hct 23.7 % (42-52) L 10/11/19 05:45 MCV 93.7 fL (80-100) 10/11/19 05:45 MCH 32.0 pg (25-34) 10/11/19 05:45 MCHC 34.2 g/dL (32-36) 10/11/19 05:45 RDW Std Deviation 47.4 fL (36.4-46.3) H 10/11/19 05:45 RDW Coeff of Kae 13.8 % (11.5-14.5) 10/11/19 05:45 Plt Count 225 K/uL (130-400) 10/11/19 05:45 MPV 9.0 fL (7.4-10.4) 10/11/19 05:45 Immature Gran % (Auto) 0.1 % 09/25/19 14:03 Neut % (Auto) 61.3 % 09/25/19 14:03 Lymph % (Auto) 26.7 % 09/25/19 14:03 [place] % (Auto) 7.0 % 09/25/19 14:03 Eos % (Auto) 4.0 % 09/25/19 14:03 Baso % (Auto) 0.9 % 09/25/19 14:03 Immature Gran # (Auto) 0.01 K/uL (0.00-0.02) 09/25/19 14:03 Neut # (Auto) 4.30 K/uL (1.4-6.5) 09/25/19 14:03 Lymph # (Auto) 1.87 K/uL (1.2-3.4) 09/25/19 14:03 [place] # (Auto) 0.49 K/uL (0.11-0.59) 09/25/19 14:03 Eos # (Auto) 0.28 K/uL (0-0.5) 09/25/19 14:03 Baso # (Auto) 0.06 K/uL (0-0.2) 09/25/19 14:03 PT 10.3 Seconds (9.0-12.0) 09/25/19 14:03 INR 1.0 (0.9-1.1) 09/25/19 14:03 APTT 27.5 Seconds (21.0-31.0) 09/25/19 14:03 PTT Ratio 1.0 09/25/19 14:03 Sodium 134 mmol/L (136-145) L 10/11/19 05:45 Potassium 4.1 mmol/L (3.5-5.1) 10/11/19 05:45 Chloride 102 mmol/L (98-107) 10/11/19 05:45 Carbon Dioxide 28 mmol/L (21-32) 10/11/19 05:45 Anion Gap 4.0 (3-11) 10/11/19 05:45 BUN 17 mg/dl (7-18) 10/11/19 05:45 Creatinine 0.75 mg/dl (0.6-1.4) 10/11/19 05:45 Est Cr Clr Drug Dosing 125.5 ml/min 10/11/19 05:45 Est GFR ( Amer) 122.2 10/11/19 05:45 Est GFR (Non-Af Amer) 105.5 10/11/19 05:45 BUN/Creatinine Ratio 23.1 (10-20) H 10/11/19 05:45 Glucose 110 mg/dl (70-99) H 10/11/19 05:45 Estimat Average Glucose 103 mg/dl 09/25/19 14:03 Hemoglobin A1c 5.2 % (4.5-5.6) 09/25/19 14:03 Calcium 9.3 mg/dl (8.5-10.1) 10/11/19 05:45 Albumin 3.8 gm/dl (3.4-5.0) 09/25/19 14:03 Urine Color Yellow 09/25/19 14:03 Urine Appearance Clear (Clear) 09/25/19 14:03 Urine pH 5.5 (4.5-7.5) 09/25/19 14:03 Ur Specific [place] 1.018 (1.000-1.030) 09/25/19 14:03 Urine Protein Negative (Negative) 09/25/19 14:03 Urine Glucose (UA) Negative (Negative) 09/25/19 14:03 Urine Ketones Negative (Negative) 09/25/19 14:03 Urine Blood Negative (Negative) 09/25/19 14:03 Urine Nitrite Negative (Negative) 09/25/19 14:03 Urine Bilirubin Negative (Negative) 09/25/19 14:03 Urine Urobilinogen Negative (Negative) 09/25/19 14:03 Ur Leukocyte Esterase Trace (Negative) H 09/25/19 14:03 Urine WBC (Auto) 1-5 /hpf (0-5) 09/25/19 14:03 Urine RBC (Auto) 5-10 /hpf (0-4) H 09/25/19 14:03 U Hyaline Cast (Auto) 0 /lpf (0-5) 09/25/19 14:03 U Epithel Cells (Auto) 0-5 /lpf (0-5) 09/25/19 14:03 Urine Bacteria (Auto) Negative (Negative) 09/25/19 14:03 Blood Type A Positive 09/25/19 14:03 Antibody Screen NEGATIVE 09/25/19 14:03
[2019-10-11] MEDS: PANTOprazole 40 MG TAB PO SCH (10:14)
[2019-10-11] MEDS: ONDANSETRON INJ 2 MG/ML 2 ML VIAL IV PRN (11:09)
[2019-10-11] MEDS: METOCLOPRAMIDE HCL INJ 5 MG/ML 2 ML VIAL IV PRN (12:40)
[2019-10-11] MEDS: HYDROmorphone INJ 0.5 MG/0.5 ML SYR IV PRN ×2 (13:25→21:44)
[2019-10-11 14:59] LABS: Hematocrit (blood only) 21.3 % (42-52); Hemoglobin 7.4 g/dL (14.0-18.0)
[2019-10-11] MEDS ORDERED: SODIUM CHLORIDE 0.9% 250 ML IV PRN (15:46)
--- NOTE | 2019-10-11 17:52 | Hospitalist Consultation ---
Date of Consultation October 11, 2019 Assessment & Plan (1) Ochronosis: - Resultant in connective tissues issues; now S/P B/L TKA on 10/08 - Overall doing well post-operatively; mildly tachy and having some nausea/vomiting that he relates to medications - Continue pain control/nausea control/bowel regimen; could consider Maalox or GI cocktail but seems TUMS working well per patient report - EKG with sinus tach and now ischemic changes - nonspecific changes in leads III, aVF but no reciprocal changes elsewhere - possibly findings are lead placement - Surgical management per primary team - Discussed with Alvaro Alvarenga PA-C - Rarely does this condition affect the heart however can cause aortic stenosis - reviewed outpatient echocardiogram - no significant valvular issues - DVT prophylaxis - Lovenox; EBL 150 cc (2) Acute blood loss anemia: - Given the tachycardia, nausea/vomiting, fatigue this is likely related to drastic swing in his counts; suspect surgical losses and some dilutional effects - Pre-operative Hgb 14 and currently at 7.4 - typically not a level we would transfuse but given this rapid shift in labs would expect to be symptomatic - Discussed with patient - will transfuse 2 units PRBC and reassess labs in AM - so far HR already improving some down to 105 bpm on most recent labs (3) Hypertension: - STABLE - Continue HCTZ 25 mg daily and Losartan 100 mg daily Hospitalists will continue to follow Supervising Physician Co-Signing Physician Notes Patient seen and examined with Kathy LOJA. I agree with her exam findings, review of systems, assessment and plan. I personally reviewed the lab work and imaging as well. patient feeling okay, no chest pain, no dyspnea he is tachycardic on exam in the 110's he does not feel light headed he is nauseated, not eating well, says he always gets this way after anesthesia labs showed a significant drop in Hb, down to 8.1, then repeat was 7.5 he continued to be tachycardic, agreed to PRBC transfusion - Acute blood loss anemia as cause of post operative anemia symptomatic with weakness, tachycardia, nausea will transfuse two units PRBC, repeat H/H in the morning will continue to follow closely while hospitalized History of Present Illness Reason for Consultation: Anemia/Med Management Attending Physician: Tremayne Gould DO History of Present Illness Mr. Beatty is a 53 y/o male with PMHx of Ochronosis, mild Pulmonary HTN, and HTN who is S/P B/L TKA on 10/08. For the most part doing well post-operatively. However reporting nausea, heartburn, and fatigue today. Preoperative Hgb was 14 and continues to trend down and currently at 7.4. BP is stable but remains slightly tachy. EKG with sinus tach without signs of ischemia. Some nonspecific changes in leads III, aVF however no reciprocal changes. Patient denies cardiac history. Tums and ice cream seem to be relieving his heart burn. He does report having nausea and vomiting when he had his shoulder done previously and feels that its medication induced. When ambulating today he was reported to be pale and did have an episode of vomiting. Discussed Hgb findings and how his counts are about half his pre-operative levels and agrees to blood transfusion. Will transfuse 2 units and assess Hgb in AM. He denies H/O CHF, DVT, PE. Discussed with Alvaro Alvarenga PA-C. Allergies Allergy/AdvReac Type Severity Reaction Status Date / Time etodolac Allergy Mild ITCHINESS Verified 10/09/19 05:32 morphine AdvReac Intermediate vomiting Verified 10/09/19 05:32 Home Medications Home Medications Medication Instructions Recorded Confirmed Type diphenhydramine-acetaminophen 3 - 4 tab PO HS PRN 09/18/19 10/09/19 History [Tylenol PM Extra Strength] hydrochlorothiazide 25 mg PO QAM 09/18/19 09/18/19 History ibuprofen 800 mg PO UD PRN 09/18/19 10/09/19 History losartan 100 mg PO QAM 09/18/19 09/18/19 History rniogbll-ejh-ehjlh-vit K-lycop 1 tab PO DAILY 10/09/19 10/09/19 History [Men's Multivitamin] acetaminophen 1,000 mg PO Q8 PRN #90 tab 10/10/19 Rx enoxaparin 40 mg SUBCUT Q24H #28 syr 10/10/19 Rx oxycodone 5 mg PO Q6H PRN #30 tab MDD 4 tabs 10/10/19 Rx sennosides [Senokot] 17.2 mg PO HS PRN #28 tab 10/10/19 Rx Patient History Medical History Arthritis Hypertension Mild pulmonary hypertension Ochronosis 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 Pt seen by cardio prior to surgery for echo as disease can have cardiac manifestations. Echo normal other than mild PHTN Surgical History History of appendectomy History of arthroplasty of right shoulder History of arthroscopy of right knee History of colonoscopy Family History (Updated 10/11/19 @ 18:01 by Kathy Iniguez PA-C) Other Family history non-contributory Social History Preferred Language: Welsh Communication Ability: Effective Directional Bore Operator Required: No Beliefs That Will Affect Care: None marital status: Current Living Situation: Family Other Information That Helps Us Care for You: Yes (15 STEPS AT HOME) Feels Safe at Home: Yes Smoking Status: Current every day smoker Tobacco Type: cigarettes ; Cigarettes Per Day: 0.5PPD/ADVISED NPO ; Do You Dip or Chew Tobacco: No ; Hx Alcohol Use: Yes Hx Substance Use: No Review of Systems Constitutional: + fatigue and + anorexia; no fever and no chills Eyes: no worsening vision Ear, Nose, Mouth, Throat: no nasal congestion, no sore throat and no dysphagia Respiratory: no cough and no dyspnea Cardiovascular: no chest pain, no palpitations and no lightheadedness Gastrointestinal: + heartburn, + nausea and + vomiting; no abdominal pain, no constipation and no diarrhea/loose stools Genitourinary: no dysuria Musculoskeletal: + joint pain (knees - controlled with medications) Integumentary: no rash Neurologic: no tingling and no numbness Physical Exam Constitutional: WD/WN, vitals as above no acute distress Eyes: + anicteric sclerae ENMT: Ears: no hearing impairment Neck: trachea midline Respiratory: normal respiratory effort, lungs clear to auscultation Cardiovascular: Rate/Rhythm: regular rate and + tachycardic Heart Sounds: no murmur Vessels: no JVD Gastrointestinal (Abdomen): Inspection/Auscultation: normal bowel sounds Percussion/Palpation: abdomen soft; abdomen nontender Musculoskeletal: Head/Neck/Chest: normocephalic and head atraumatic Skin: no rashes, warm and dry + pallor Neurologic: moves all extremities Psychiatric: A+Ox3, euthymic affect Results & Data ([facility]) Vital Signs (Past 12 Hours) Vital Signs Temp Pulse Pulse Resp BP BP Pulse Ox 10/11/19 17:39 37.4 C 113 H 18 100/69 100 10/11/19 16:18 37.4 C 115 H 16 102/68 100 10/11/19 06:58 37.1 C 115 H 18 134/84 99 PG Care Time/CCT Total # of Minutes Spent Total Time Spent with Patient: Total time spent is greater than 50% in coordination of care (as documented) at patient's floor/unit and/or counseling patient: Coding Level of Care Code 83357 Inpt Consult Level 3 Diagnoses Ochronosis E70.29 Acute blood loss anemia D62 Hypertension I10
--- NOTE | 2019-10-11 18:06 | Electrocardiogram Report ---
Test Reason : Blood Pressure : / mmHG Vent. Rate : 108 BPM Atrial Rate : 108 BPM P-R Int : 112 ms QRS Dur : 088 ms QT Int : 314 ms P-R-T Axes : 047 048 027 degrees QTc Int : 420 ms Sinus tachycardia Otherwise normal ECG No previous ECGs available Confirmed by Kishore Dias ([id number]) on 10/11/2019 6:05:31 PM Referred By: Tremayne Gould Confirmed By:Kishore Dias
[2019-10-11] MEDS: SENNA 8.6 MG TAB PO SCH (21:39)
[2019-10-12] MEDS: OXYCODONE HCL IR 5 MG TAB (IMMEDIATE RELEASE) PO PRN ×4 (04:13→17:06)
[2019-10-12 05:58] LABS: Hematocrit (blood only) 25.4 % (42-52); Hemoglobin 8.7 g/dL (14.0-18.0); Mean Corpuscular Hemoglobin 31.2 pg (25-34); Mean Corpuscular Hgb Conc 34.3 g/dL (32-36); Mean Platelet Volume 8.5 fL (7.4-10.4); Platelet Count 192 K/uL (130-400); RDW Coefficient of Variation 13.9 % (11.5-14.5); RDW Standard Deviation 46.2 fL (36.4-46.3); Red Blood Count 2.79 M/uL (4.7-6.1); White Blood Count 9.63 K/uL (4.8-10.8)
[2019-10-12] MEDS: ACETAMINOPHEN 500 MG TAB PO SCH ×2 (06:08→14:46)
[2019-10-12 06:38] LABS: BUN Creatinine Ratio 22.1 (10-20); Calcium 9.3 mg/dl (8.5-10.1); Creatinine Clr Calc Pharmacy 151.8 ml/min; Est GFR (African American) 132.2; Est GFR (Non-African American) 114.1; Potassium 3.7 mmol/L (3.5-5.1)
[2019-10-12] MEDS: MULTIVITAMIN TAB PO SCH ×2 (07:38→08:28)
[2019-10-12] MEDS: hydroCHLOROthiazide 25 MG TAB PO SCH ×2 (07:38→08:29)
[2019-10-12] MEDS: LOSARTAN POTASSIUM 50 MG TAB PO SCH ×2 (07:39→08:29)
[2019-10-12] MEDS: DOCUSATE SODIUM 100 MG CAP PO SCH ×2 (07:39→08:28)
[2019-10-12] MEDS: PANTOprazole 40 MG TAB PO SCH ×2 (07:39→08:29)
[2019-10-12] MEDS: ENOXAPARIN INJ 40 MG/0.4 ML SYR SQ SCH (07:40)
[2019-10-12] MEDS: ONDANSETRON INJ 2 MG/ML 2 ML VIAL IV PRN ×2 (07:43→18:36)
[2019-10-12] MEDS: CALCIUM CARBONATE 500 MG CHEWABLE TAB PO PRN (10:22)
--- NOTE | 2019-10-12 11:57 | Hospitalist Progress Note ---
Date of Service October 12, 2019 Assessment & Plan (1) Ochronosis: - Resultant in connective tissues issues; now S/P B/L TKA on 10/08 - Overall doing well post-operatively; HR improved and having some nausea/vomiting that he relates to medications - Continue pain control/nausea control/bowel regimen; could consider Maalox or GI cocktail but seems TUMS resolved the acid reflux; seems like ice cream calms the stomach but mostly gets nauseous after taking medications - EKG with sinus tach and no ischemic changes - nonspecific changes in leads III, aVF but no reciprocal changes elsewhere - possibly findings are lead placement - Surgical management per primary team - Discussed with Alvaro Alvarenga PA-C - Rarely does this condition affect the heart however can cause aortic stenosis - reviewed outpatient echocardiogram - no significant valvular issues - DVT prophylaxis - Lovenox; EBL 150 cc (2) Acute blood loss anemia: - Given the tachycardia, nausea/vomiting, fatigue this is likely related to drastic swing in his counts; suspect surgical losses and some dilutional effects - Pre-operative Hgb 14 and dropped to 7.4 - typically not a level we would transfuse but given this rapid shift in labs would expect to be symptomatic - Transfused 2 units PRBC and Hgb now at 8.7 - suspect this will continue to trend up over coming days/weeks (3) Hypertension: - STABLE - Continue HCTZ 25 mg daily and Losartan 100 mg daily Hospitalists will continue to follow. No medical contraindication for discharge if orthopedically ready Admission and Anticipated Discharge Date Admission Date: October 09, 2019 Subjective Reports feeling well today. Hgb improved to 8.7 after transfusion. HR improved. States pain is largely controlled. Still reduced appetite. Feels sick after taking pills and the same thing happened with his last surgery. No CP or SOB. Reflux symptoms are resolved today. Ice cream seems to help the upset stomach. He verbalizes no new complaints Review of Systems Constitutional: no fever and no chills Respiratory: no cough and no dyspnea Cardiovascular: no chest pain, no palpitations and no lightheadedness Gastrointestinal: + nausea; no abdominal pain, no heartburn, no vomiting, no constipation and no diarrhea/loose stools Genitourinary: no dysuria Musculoskeletal: + joint pain (knees - controlled with medications) Integumentary: no rash Neurologic: no tingling and no numbness Physical Exam Constitutional: WD/WN, vitals as above no acute distress Eyes: + anicteric sclerae ENMT: Ears: no hearing impairment Neck: trachea midline Respiratory: normal respiratory effort, lungs clear to auscultation Cardiovascular: Rate/Rhythm: regular rate and + tachycardic Heart Sounds: no murmur Vessels: no JVD Gastrointestinal (Abdomen): Inspection/Auscultation: normal bowel sounds Percussion/Palpation: abdomen soft; abdomen nontender Musculoskeletal: Head/Neck/Chest: normocephalic and head atraumatic Skin: no rashes, warm and dry Neurologic: moves all extremities Psychiatric: A+Ox3, euthymic affect Results & Data ([facility]) Vital Signs (Past 12 Hours) Vital Signs Temp Pulse Pulse Resp BP BP Pulse Ox 10/12/19 06:22 36.7 C 98 H 16 122/73 95 10/12/19 00:00 37.1 C 101 H 16 106/66 98 PG Care Time/CCT Total # of Minutes Spent Total Time Spent with Patient: Total time spent is greater than 50% in coordination of care (as documented) at patient's floor/unit and/or counseling patient: Coding Level of Care Code 36526 Inpt Consult Level 2 Diagnoses Ochronosis E70.29 Acute blood loss anemia D62 Hypertension I10
--- NOTE | 2019-10-12 13:52 | Orthopedic Progress Note ---
Date of Service October 12, 2019 Assessment & Plan (1) Degenerative joint disease of left knee: (2) Degenerative joint disease of knee, right: s/p bilateral TKA POD#3 -Nausea-continue antiemetics. Improving -med recs appreciated, cardio recs appreciated -ancef x 24 -DVT ppx: SCDs, TEDs, Lovenox daily -WBAT B/L LE -PT/OT -RLE paraesthesia/foot drop resolved -Ice/elevation B/L LE -PO XR demonstrates well aligned well fixed bilateral prothesis without fracture/dislocation -am labs hgb 8.7, see above s/p 2 units PRBC -DC planning - home with HH Admission and Anticipated Discharge Date Admission Date: October 09, 2019 Subjective Post Operative Progress Note Patient seen ambulating in room, comfortable, c/0 N/V this am after breakfast, feeling better, pain well controlled, no acute issues. Currently denies N/V/F/C/SOB/CP Review of Systems Review of Systems: All systems reviewed & are unremarkable except as noted in HPI & below Constitutional: as per Subjective / HPI Physical Exam Physical Exam: LLE NVSI +EHL/FHL/TA/GS SILT grossly, +2 DP pulse, compartments soft NT, dressing cdi. RLE NVSI +EHL/FHL/TA/GS SILT grossly, +2 DP pulse, compartments soft NT, dr ramirez cdi. Constitutional: WD/WN, vitals as above Eyes: PERRL, conjunctivae normal, anicteric sclerae ENMT: external ear and nose normal, oropharynx normal Neck: trachea midline, no thyromegaly Respiratory: normal respiratory effort, lungs clear to auscultation Cardiovascular: RRR, no murmur, no edema Gastrointestinal (Abdomen): normal bowel sounds, soft, nontender, no hepa tosplenomegaly Musculoskeletal: no cyanosis or clubbing, extremities motor strength 5/5 Skin: no rashes, warm and dry Neurologic: patellar DTR's 2+ bilat, sensation intact Psychiatric: A+Ox3, euthymic affect Lymphatic: no cervical or axillary lymphadenopathy Results & Data ([facility]) Vital Signs (Past 12 Hours) Vital Signs Temp Pulse Pulse Resp BP BP Pulse Ox 10/12/19 12:04 36.8 C 107 H 18 118/80 99 10/12/19 06:22 36.7 C 98 H 16 122/73 95 Laboratory Results 10/12/19 10/12/19 10/11/19 Range/Units 05:46 05:46 14:38 WBC 9.63 (4.8-10.8) K/uL RBC 2.79 L (4.7-6.1) M/uL Hgb 8.7 L 7.4 L (14.0-18.0) g/dL Hct 25.4 L 21.3 L (42-52) % MCV 91.0 (80-100) fL MCH 31.2 (25-34) pg MCHC 34.3 (32-36) g/dL RDW Std Deviation 46.2 (36.4-46.3) fL RDW Coeff of Kae 13.9 (11.5-14.5) % Plt Count 192 (130-400) K/uL MPV 8.5 (7.4-10.4) fL Sodium 130 L (136-145) mmol/L Potassium 3.7 (3.5-5.1) mmol/L Chloride 96 L (98-107) mmol/L Carbon Dioxide 30 (21-32) mmol/L Anion Gap 4.0 (3-11) BUN 14 (7-18) mg/dl Creatinine 0.62 (0.6-1.4) mg/dl Est Cr Clr Drug Dosing 151.8 ml/min Est GFR ( Amer) 132.2 Est GFR (Non-Af Amer) 114.1 BUN/Creatinine Ratio 22.1 H (10-20) Glucose 93 (70-99) mg/dl Calcium 9.3 (8.5-10.1) mg/dl Blood Type Antibody Screen Crossmatch 10/09/19 Range/Units 05:29 WBC (4.8-10.8) K/uL RBC (4.7-6.1) M/uL Hgb (14.0-18.0) g/dL Hct (42-52) % MCV (80-100) fL MCH (25-34) pg MCHC (32-36) g/dL RDW Std Deviation (36.4-46.3) fL RDW Coeff of Kae (11.5-14.5) % Plt Count (130-400) K/uL MPV (7.4-10.4) fL Sodium (136-145) mmol/L Potassium (3.5-5.1) mmol/L Chloride (98-107) mmol/L Carbon Dioxide (21-32) mmol/L Anion Gap (3-11) BUN (7-18) mg/dl Creatinine (0.6-1.4) mg/dl Est Cr Clr Drug Dosing ml/min Est GFR ( Amer) Est GFR (Non-Af Amer) BUN/Creatinine Ratio (10-20) Glucose (70-99) mg/dl Calcium (8.5-10.1) mg/dl Blood Type A Positive Antibody Screen NEGATIVE Crossmatch See Detail
--- NOTE | 2019-10-12 17:35 | Discharge Summary ---
Date of Service October 12, 2019 Admission HPI Per Admitting Provider The patient is a 53 year old male who presents with complaints of severe bilateral knee pain and DJD with hx for osteochondromatosis. The patient has failed outpatient conservative treatments to this point which included NSAIDs, corticosteroid injections, PT and a home exercise walking program. The patient's pain and limited function have progressed to the point where they severely hinder their activities of daily living and they no longer tolerate exercise programs. They are requesting to proceed with bilateral total knee replacement surgery. Principal Diagnosis Bilateral total knee replacements -bilateral knee djd/osteochondromatosis Discharge Exam LLE NVSI +EHL/FHL/TA/GS SILT grossly, +2 DP pulse, compartments soft NT, dressing cdi. RLE NVSI +EHL/FHL/TA/GS SILT grossly, +2 DP pulse, compartments soft NT, dressing cdi. Constitutional WD/WN, vitals as above Discharge Data Allergies Allergy/AdvReac Type Severity Reaction Status Date / Time etodolac Allergy Mild ITCHINESS Verified 10/09/19 05:32 morphine AdvReac Intermediate vomiting Verified 10/09/19 05:32 Consultations 10/09/19 12:45 Consult Case Management - Discharge Planning Routine 10/11/19 08:57 Consult Hospitalist Routine Procedures Performed Operation Date: 10/09/19 07:15 Actual Procedures p Bilateral Total Knee Arthroplasty(Bilateral) - Tremayne Gould DO Ordered Studies 10/09/19 05:00 US - OR guided needle [facility] Urgent Hospital Course (1) Degenerative joint disease of left knee: (2) Degenerative joint disease of knee, right: The patient is a 53 -year-old male who presents with long standing history of severe bilateral knee DJD/osteochromatosis and failed outpatient conservative treatments. The patient's symptoms have progressed to the point where it has been difficult to perform even normal activities of daily living. I indicated the patient for bilateral total knee arthroplasties, the risks, bene fits and complications of the procedure include but not limited to infection, bleeding, damage to bone, nerves, vessels, surrounding soft tissue, may develop blood clots, loss of function, leg length discrepancy, dislocation, failure of the components, loosening of the components, the need for additional surgery and . The patient wished to proceed with surgery at this time and informed consent was obtained. Hospital Course: On 3/3/20 the patient was taken to the operating room, adequate anesthesia administered and underwent bilateral total knee arthroplasties. The patient tolerated the procedure well and was taken to the PACU in stable condition. Post-operatively the patient was started on a DVT ppx medication and given appropriate IV antibiotics. Consults were placed to medical hospitalist, physical therapy, occupational therapy and case management. On POD#1, the patient did well overnight and their pain was well controlled. Labs were drawn and the Hgb was 9.9. The patient progressed well with PT. On POD#2, The patient had increasing pain/tachycardia and nausea with vomiting. Consultation placed to medical hospitalist. Labs were drawn, hgb 8.1. Anemia s econdary to acute blood loss and dilutional effect. Recheck hgb 7.4 and the patient was transfused 2 units of PRBCs. On POD#3, the patient did well overnight had mild complaints of nausea which i mproved as the day went on. Pain well controlled and he continued to progress with PT. Labs were drawn and hgb was 8.7. Dressings were changed at this time and the incision was clean, dry and intact. The patient was deemed stable by the orthopedic team and consultants to be discharged home with on 10/12/19. Discharge Instructions: Upon discharge the patient may weight bear as tolerates through their operative extremities. They were instructed to keep the incision clean and dry at all times. The patient may shower but should not submerge the incision, avoid bathing, pools and hot tubes. The patient was given a script for pain medication and should take as instructed. The patient was given a script for DVT ppx Lovenox 40mg daily and should take as directed. The patient was in structed to not drive or travel for long distances until cleared to do so. If the patient develops any symptoms of fevers, chills, nausea, vomiting, increased redness, swelling, pain or drainage from the surgical site, they should notify the office and/or proceed to the nearest emergency room. The patient should follow up in 10-14 days after surgery for their routine post-operative follow-up appointment and should call the office to confirm the date and time. s/p bilateral TKA POD#1 -ancef x 24 -DVT ppx: SCDs, TEDs, Lovenox daily -WBAT B/L LE -PT/OT -RLE paraesthesia/foot drop resolved -Ice/elevation B/L LE -PO XR demonstrates well aligned well fixed bilateral prothesis without fracture/dislocation -am labs hgb 9.9, see above -DC planning - home with POD#2 -Nausea-continue antiemetics. Will add Protonix with complaint of heartburn earlier. Consider narcotic change if patient symptoms persist. -ancef x 24 -DVT ppx: SCDs, TEDs, Lovenox daily -WBAT B/L LE -PT/OT -RLE paraesthesia/foot drop resolved -Ice/elevation B/L LE -PO XR demonstrates well aligned well fixed bilateral prothesis without fracture/dislocation -am labs hgb 8.1; Acute blood loss anemia. Preop hemoglobin was around 14. Plan for EKG this morning. Repeat hemoglobin and hematocrit ordered for later this afternoon. Consider transfusion if patient's symptoms persist or worsen. If there are any EKG changes, plan for medical consult. POD#3 -Nausea-continue antiemetics. Improving -med recs appreciated -ancef x 24 -DVT ppx: SCDs, TEDs, Lovenox daily -WBAT B/L LE -PT/OT -RLE paraesthesia/foot drop resolved -Ice/elevation B/L LE -PO XR demonstrates well aligned well fixed bilateral prothesis without fracture/dislocation -am labs hgb 8.7, see above s/p 2 units PRBC -DC planning - home with Total Time Total Time Spent Total Time Spent (In Minutes): >60 minutes Discharge Plan Discharge Items Patient Disposition: Home - Home Health Services Reason For Visit: BILATERAL KNEE OSTEOARTHRITIS Discharge Diagnosis: Bilateral total knee replacements -Bilateral knee djd/osteochodromatosis Condition on Discharge: Good Activity: Per Instructions section Lifting: Wait until after follow-up appointment Bathing: Keep incision dry Sexual Activity: Wait until after follow-up appointment Exercise/Sports: Wait until after follow-up appointment Driving/Machine Use: No driving Weightbearing: Full weightbearing Non-emergency contact: Primary Care Provider and Surgeon Call non-emergency contact if: you have any medication questions, your symptoms worsen, your pain is not controlled, your pain is worsening, your pain is unusual for you, your pain is concerning for you, you have a fever, your temperature is above 101, your wound has increased redness, your wound has increased drainage and your wound pain has increased Follow-up/Referrals: Sarah Loredo D.O. [Primary Care Provider] - Diet: Regular Addtl Attending Provider Instructions: ACTIVITY RECOMMENDATIONS: SELF CARE INSTRUCTIONS AFTER TOTAL KNEE REPLACEMENT A. You may need to continue a physical therapy program after discharge from the hospital. There are several options available to you. Your doctor will assist you in selecting the best one for you. 1. An out-patient facility 2 to 3 times a week for therapy or home therapy. 2. Continue working on all exercises taught to you in the hospital. Your goals should be to increase bending of your knee to 90 degrees and beyond and to fully straighten your knee. B. You may progress at your own pace from walking with a walker or crutches to a cane; then to no assistive devices. C. Make walking a part of your daily routine. Be up as much as comfortable with rest periods throughout the day. Rest with leg elevation is very important. Use the ice wrap frequently for the first 3-4 weeks. D. There are no restrictions on activities. You may ride in a car, shop, participate in project development leader and all social activities. E. Wear the long elastic stockings (VERA hose) 20 hours a day for 2 weeks after surgery. They can be removed several times a day for laundering and for a bath. F. You may shower, no tub baths until cleared by your doctor. SPECIAL CARE INSTRUCTIONS: VERY IMPORTANT TO READ AND REVIEW A. There are a few signs you need to watch for after you are home. Call [facility] if you notice any of the followin. Increased severe knee pain. Some pain is expected especially when you exercise. 2. Increased swelling in your leg or knee; pain or swelling of the calf muscle in either lower leg. 3. Any fluid drainage from the incision. 4. Shortness of breath or chest pain. B. Please call [facility] at if you have any concerns or questions about your operation or recovery. The doctor or his nurse will return your call promptly. C. You must take antibiotics before dental work, bladder, bowel or other surgery. Your doctor will provide you with a permanent care to carry describing this precaution. IMPORTANT: * REMEMBER TO TAKE LOVENOX 40MG DAILY FOR 4 WEEKS UNLESS OTHERWISE DIRECTED. THIS IS YOUR BLOOD THINNER. * HIGH RISK PATIENTS MAY BE PRESCRIBED A STRONGER BLOOD THINNER. THIS WILL BE PROVIDED AT DISCHARGE. * CALL IF INCREASED PAIN, REDNESS, DRAINAGE OR FEVER GREATER THAT 101. * WEAR VERA HOSE 20 HOURS PER DAY FOR 2 WEEKS. * YOU MAY HAVE A LARGE BAND-AID LIKE DRESSING (SILVERON). THIS WILL REMAIN ON YOUR INCISION FOR 7 DAYS, THEN CAN BE REMOVED. IF INCISION IS LEAKING THROUGH DRESSING, CALL THE OFFICE . FOLLOW UP VISIT: If appointment is not already scheduled: Please call [facility] to make a follow-up appointment for 2 weeks after your surgery at . Pending Studies at Discharge: No Stand-Alone Forms: [facility] NeighborMD, Opioid Pain Management, Smoking Cessation Medications and DC Order Prescriptions: New acetaminophen 500 mg Tablet 1,000 mg PO Q8 PRN (Reason: pain/fever) Qty: 90 RF: 0 oxycodone 5 mg Tablet 5 mg PO Q6H MDD 4 tabs PRN (Reason: pain) Qty: 30 RF: 0 sennosides [Senokot] 8.6 mg Tablet 17.2 mg PO HS PRN (Reason: constipation) Qty: 28 RF: 0 enoxaparin 40 mg/0.4 mL Syringe 40 mg subcut Q24H Qty: 28 RF: 0 ondansetron HCl [Zofran] 4 mg tablet 4 mg PO Q8H PRN (Reason: nausea and vomiting) Qty: 30 RF: 0 Continued hydrochlorothiazide 25 mg Tablet 25 mg PO QAM RF: 0 diphenhydramine-acetaminophen [Tylenol PM Extra Strength] 25-500 mg Tablet 3 - 4 tab PO HS PRN (Reason: Sleep) RF: 0 losartan 100 mg Tablet 100 mg PO QAM RF: 0 Men's Multivitamin 400-20-300 mcg Tablet 1 tab PO DAILY RF: 0 Discontinued ibuprofen 800 mg Tablet 800 mg PO UD PRN (Reason: Pain) RF: 0 Discharge Orders: Discharge Order (Routine); Ordered 10/12/19 Ordered By: Tremayne Pringle/Other Patient Handouts: DVT Prevent, ED Vomiting Adult Admission Data Admit Date/Time: 10/09/19 11:43 Attending Provider: Tremayne Gould Admit Provider: Tremayne Gould Primary Care Provider: Sarah Loredo Other Providers: Stephani Munguia Other Interventions: Discharge Summary Assessment (RN) Last Done: 10/12/19 17:15 DC Date/Time DO NOT enter until pt leaves facility: 10/12/19 20:28
== END 2019-10-12 20:28 | disposition home health service (06) | DRG 462 ==
LOC: ASU 05:04 → 3E 11:43

== ENCOUNTER 2020-12-25 11:43 | Inpatient (IN) ==
--- NOTE | 2020-11-11 16:43 | PAT Medication Instructions ---
Medication Instructions Date of Service November 11, 2020 Home Medications Medication Instructions Recorded acetaminophen 1,000 mg PO Q8 PRN #90 tab 10/10/19 diphenhydramine-acetaminophen [Tylenol PM Extra Strength] 3 - 4 tab PO HS PRN hydrochlorothiazide 25 mg PO QAM losartan 100 mg PO QAM acetaminophen 1,000 mg PO Q8 PRN ibuprofen 600 mg PO QAM ASK your surgeon for instructions ibuprofen 600 mg PO QAM DO NOT take the morning of surgery hydrochlorothiazide 25 mg PO QAM losartan 100 mg PO QAM acetaminophen 1,000 mg PO Q8 PRN Take evening before surgery diphenhydramine-acetaminophen [Tylenol PM Extra Strength] 3 - 4 tab PO HS PRN (if needed) acetaminophen 1,000 mg PO Q8 PRN (if needed) NOTHING TO EAT OR DRINK AFTER MIDNIGHT. Other Notes If you have any questions please call us at [phone] or [phone] or [phone] or [phone]
--- NOTE | 2020-11-12 09:24 | Anesthesiology Consultation ---
Date of Service November 12, 2020 Assessment & Plan (1) Encounter for pre-operative examination: COVID Status: As of 11/12 assessment, patient denies travel to endemic area, known exposure/sick contacts, or symptoms of COVID19. Patient instructed that they and their household members must follow strict social distancing guidelines, wear a mask in public and avoid travel/events/gatherings for 14 days prior to surgery. Preoperative COVID19 testing to be completed prior to surgery per surgeon's arrangements (5/3 per pt). Patient made aware to self-isolate as much as possible between COVID testing and surgery. Chart Review Chart Review: Acceptable Risk for Surgery (pending ekg faxed for, surgeon- ordered cardio and PCP clearances) and Patient seen in Pre Admission Testing Consults Requested medical & cardiac Teaching & Discussion Instructed NPO after midnight before surgery, except medications with 15 cc of water. Medication instructions provided according to the PAT guidelines. History Surgery Operation Date: 12/11/20 11:05 Proposed Procedures p Left Total Shoulder Arthroplasty - Sage Payton M.D. Height/Weight Height: 5 ft 8 in Weight: 86.7 kg Allergies Allergy/AdvReac Type Severity Reaction Status Date / Time etodolac Allergy Mild ITCHINESS Verified 11/11/20 11:02 morphine AdvReac Intermediate vomiting Verified 11/11/20 11:02 Medications Home Medications Medication Instructions Recorded Confirmed Last Taken diphenhydramine-acetaminophen 3 - 4 tab PO HS PRN 09/18/19 11/11/20 10/08/19 20:00 [Tylenol PM Extra Strength] hydrochlorothiazide 25 mg PO QAM 09/18/19 11/11/20 10/01/19 06:15 losartan 100 mg PO QAM 09/18/19 11/11/20 10/09/19 03:00 acetaminophen 1,000 mg PO Q8 PRN #90 tab 10/10/19 11/11/20 Unknown ibuprofen 600 mg PO QAM 11/11/20 11/11/20 Unknown Past Medical History Medical History 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 Pt seen by cardio prior to B/L TKA in 2019 for echo as disease can have cardiac manifestations. Echo normal other than mild PHTN. Follows with radiology rn every 2-3 years--follows with [facility]. Arthritis Hypertension Mild pulmonary hypertension Ochronosis Exercise / Class Metabolic Activity II 4-5 Yardwork/Stairs/Walk up hill (Denies CP or SOB with 1 FOS) Past Family History Family History (Updated 11/11/20 @ 11:05 by Keiko Colby, RN) Other Family history non-contributory No family history of adverse response to anesthesia Past Surgical History Surgical History (Updated 11/11/20 @ 11:05 by Keiko Colby RN) History of appendectomy History of arthroplasty of right shoulder History of arthroscopy of right knee History of carpal tunnel surgery of right wrist History of colonoscopy History of total bilateral knee replacement (TKR) (~10/09/19) Past Anesthesia History No Hx of Anesthesia Complications and No Family Hx of Anesthesia Complications History of PONV No Hx of Motion Sickness and History of PONV (even with TKAs) Social History Smoking Status: Current every day smoker tobacco type: cigarettes Smoking cigarettes per day: 10 a day Do You Dip or Chew Tobacco: No Hx Alcohol Use: Yes Alcohol type: beer alcohol intake frequency: other Alcohol Intake Frequency Comment: once a week Hx Substance Use: No substance use type: does not use Review of Systems Pt denies any recent chest pain, shortness of breath, palpitations, cough, fever, URI, or uncontrolled acid reflux. Physical Exam Vital Signs BP: 130/92 P: 97bpm SPO2: 99% RA T: 98.5 F R: 16 ENMT Mouth: no dental restorations, no chipped teeth and no loose teeth Thyromental Distance: > or= 3.5 Finger Breadths Mallampati Class: III Many teeth missing Neck + short neck, + limited neck extension and + facial hair (short francis) Respiratory normal respiratory effort, lungs clear to auscultation Cardiovascular RRR, no murmur, no edema Testing Laboratory Results 11/12/20 09:34 11/12/20 09:34 PT 9.8 Seconds (9.0-12.0) 11/12/20 09:34 INR 1.0 (0.9-1.1) 11/12/20 09:34 APTT 26.3 Seconds (21.0-31.0) 11/12/20 09:34 Hemoglobin A1c 5.3 % (4.5-5.6) 11/12/20 09:34 Urine Color Yellow 11/12/20 09:34 Urine Appearance Clear (Clear) 11/12/20 09:34 Urine pH 5.0 (4.5-7.5) 11/12/20 09:34 Ur Specific [place] 1.015 (1.000-1.030) 11/12/20 09:34 Urine Protein Negative (Negative) 11/12/20 09:34 Urine Glucose (UA) Negative (Negative) 11/12/20 09:34 Urine Ketones Negative (Negative) 11/12/20 09:34 Urine Nitrite Negative (Negative) 11/12/20 09:34 Ur Leukocyte Esterase Negative (Negative) 11/12/20 09:34 Blood Type A Positive 11/12/20:34 Antibody Screen NEGATIVE 11/12/20 09:34 Chest X-Ray Date: 11/13/19 Findings: + NAD FINDINGS: The cardiac and mediastinal contours are normal. There is no evidence of focal pulmonary consolidation. There is no evidence of failure. No pleural effusions are visualized.[Degenerative changes are present within the spine. There is a right shoulder arthroplasty. IMPRESSION: No active disease in the chest. Echocardiogram Date: 09/19/19 EF: 58% Mild diastolic dysfunction. Normal RV size and systolic function. Trileaflet aortic valve. The aortic cusps appear mildly thickened. The inferior vena cava is normal. Normal pulmonary artery size. Estimated PA pressure 35 mmHg. PA systolic pressures consistent with mild pulmonary hypertension. There is no significant valvular heart disease.
--- NOTE | 2020-11-12 09:56 | XRay Report ---
XR chest Pre-admission PA/Lat CLINICAL HISTORY: Preoperative chest. Occasional cough. COMPARISON STUDY: 09/25/2019 FINDINGS: The cardiac and mediastinal contours are normal. There is no evidence of focal pulmonary co nsolidation. There is no evidence of failure. No pleural effusions are visualized.[Degenerative trujillo es are present within the spine. There is a right shoulder arthroplasty. IMPRESSION: No active disease in the chest. ACT 112: Negative or not required by law. Electronically signed by: Austin Dalton M.D. 11/12/2020 9:54 AM
[2020-11-12 10:24] LABS: Appearance Urine Clear (Clear); Bilirubin Urine Negative (Negative); Blood Urine Negative (Negative); Color Urine Yellow; Glucose Urine UA Negative (Negative); Ketones Urine Negative (Negative); Leukocyte Esterase Urine Negative (Negative); Nitrite Urine Negative (Negative); Protein Urine Negative (Negative); Specific Gravity Urine 1.015 (1.000-1.030); Urobilinogen Urine Negative (Negative)
[2020-11-12 10:27] LABS: Basophils # (auto) 0.08 K/uL (0-0.2); Basophils % (auto) 0.9 %; Eosinophils # (auto) 0.26 K/uL (0-0.5); Hematocrit (blood only) 41.9 % (42-52); Hemoglobin 14.3 g/dL (14.0-18.0); Immature Granulocytes # (auto) 0.04 K/uL (0.00-0.02); Immature Granulocytes % (auto) 0.5 %; Lymphocytes # (auto) 1.69 K/uL (1.2-3.4); Lymphocytes % (auto) 19.6 %; Mean Corpuscular Hemoglobin 31.8 pg (25-34); Mean Corpuscular Hgb Conc 34.1 g/dL (32-36); Mean Corpuscular Volume 93.1 fL (80-100); Mean Platelet Volume 9.4 fL (7.4-10.4); Monocytes # (auto) 0.77 K/uL (0.11-0.59); Monocytes % (auto) 8.9 %; Neutrophils # (auto) 5.78 K/uL (1.4-6.5); Neutrophils % (auto) 67.1 %; Platelet Count 363 K/uL (130-400); RDW Standard Deviation 44.3 fL (36.4-46.3); White Blood Count 8.62 K/uL (4.8-10.8)
[2020-11-12 10:28] LABS: Estimated Average Glucose 105 mg/dl; Hemoglobin A1C 5.3 % (4.5-5.6)
[2020-11-12 10:49] LABS: Partial Thromboplastin Time 26.3 Seconds (21.0-31.0); Prothrombin Time 9.8 Seconds (9.0-12.0)
[2020-11-12 11:03] LABS: Albumin Level 3.8 gm/dl (3.4-5.0); BUN Creatinine Ratio 30.3 (10-20); Calcium 9.8 mg/dl (8.5-10.1); Creatinine Clr Calc Pharmacy 117.3 ml/min; Est GFR (African American) 119.4; Est GFR (Non-African American) 103.1; Potassium 4.2 mmol/L (3.5-5.1)
--- NOTE | 2020-12-24 09:14 | History & Physical Report ---
Date of Service December 24, 2020 Assessment & Plan (1) Primary osteoarthritis, left shoulder: His left shoulder is by far the most painful and bothersome thing to him. He has severe glenohumeral joint arthritis. However, he also has severe tendinopathy of his supraspinatus, with near full-thickness tearing in the anterior aspect of the tendon. With this pathology in his rotator cuff tendon, as well as the severe glenoid erosion, I think he would be best treated with a reverse total shoulder arthroplasty on this left shoulder rather than an anatomic; I would be very worried that his rotator cuff would completely tear postoperatively, requiring a revision to a reverse in the future if we tried to proceed with an anatomic total shoulder. This was explained to him in detail, and he voiced understanding. Risks, benefits, and alternatives of surgery were explained in detail. The surgical procedure, as well as postoperative recovery and rehabilitation, was also explained in detail. Risks include bleeding; infection; damage to surrounding structures such as nerves, blood vessels, and tendons that run in the area; persistent pain or stiffness; hardware failure; dislocation; brachial plexus palsy; blood clots; or need for further surgery. The patient understands all of this and wishes to proceed with surgery. Preoperative workup was completed today, and informed consent was obtained. Present on Admission?: Yes History of Present Illness Chief Complaint: Left shoulder pain Primary Care Provider: Sarah Lozacolleenrony Mr. Beatty is a 54-year-old [id number] male with left shoulder pain. This is been bothering him for many years, but has gotten quite severe in the past 3 years. 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 Gould. He is also had a right total shoulder arthroplasty back in 2013 with good results; it sounds like this was an anatomic total shoulder. He reports several injections in his left shoulder, but none in the past 5 to 7 years. They were minimally beneficial for him in the past. This pain has progressed to the point where he really would like to pursue a total shoulder on this side as well. Allergies Allergy/AdvReac Type Severity Reaction Status Date / Time etodolac Allergy Mild ITCHINESS Verified 11/11/20 11:02 morphine AdvReac Intermediate vomiting Verified 11/11/20 11:02 Home Medications Medication Instructions Recorded Confirmed Type diphenhydramine-acetaminophen 3 - 4 tab PO HS PRN 09/18/19 11/11/20 History [Tylenol PM Extra Strength] hydrochlorothiazide 25 mg PO QAM 09/18/19 11/11/20 History losartan 100 mg PO QAM 09/18/19 11/11/20 History acetaminophen 1,000 mg PO Q8 PRN #90 tab 10/10/19 11/11/20 Rx ibuprofen 600 mg PO QAM 11/11/20 11/11/20 History Past Med/Surg History Medical History 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 Pt seen by cardio prior to B/L TKA in 2019 for echo as disease can have cardiac manifestations. Echo normal other than mild PHTN. Follows with flow trader every 2-3 years--follows with [facility]. Arthritis Hypertension Mild pulmonary hypertension Ochronosis Surgical History (Updated 11/11/20 @ 11:05 by Keiko Colby RN) History of appendectomy History of arthroplasty of right shoulder History of arthroscopy of right knee History of carpal tunnel surgery of right wrist History of colonoscopy History of total bilateral knee replacement (TKR) (~10/09/19) Family History (Updated 11/11/20 @ 11:05 by Keiko Colby RN) Other Family history non-contributory No family history of adverse response to anesthesia Social History Smoking Status: Current every day smoker Cigarettes Per Day: 10 a day; Second Hand Exposure: No; Do You Dip or Chew Tobacco: No; Tobacco Cessation Education Requested by Patient: No Hx Alcohol Use: Yes Alcohol type: beer Hx Substance Use: No Preferred Language: Prydeinig Communication Ability: Effective Silver Chaser Required: No Beliefs That Will Affect Care: None marital status: Current Living Situation: Spouse and Family Current Living Situation Comment: Lives with and youngest daughter Other Information That Helps Us Care for You: No Feels Safe at Home: Yes Safety Concerns: Feels Safe At This Time Assistive Devices: Glasses Physical Exam Physical Exam: Examination of the left shoulder shows moderate limitation in shoulder range of motion due to pain, with palpable crepitus during motion. Rotator cuff strength is well maintained. Results & Data ([facility]) Diagnostic Findings Previous x-rays of his left shoulder were reviewed. They show advanced arthritic degeneration within the glenohumeral joint. He has rather significant posterior glenoid wear and resultant posterior subluxation of the humeral head. No obvious proximal migration humeral head. New MRI of the left shoulder from September 17 was reviewed. It shows severe arthritic degeneration within the glenohumeral joint, with severe erosion of the glenoid fossa, consistent with a type C glenoid. Mild posterior subluxation of the humeral head. The supraspinatus tendon shows severe tendinopathy of the majority of the tendon, with near full-thickness tearing anteriorly.
[~2020-12-25 11:43] MED LIST: ACETAMINOPHEN 500 MG TAB PO SCH; BUPIVACAINE 0.5 % 5 MG/1 ML PF 10ML VIAL ONE; CeleBREX 200 MG CAP PO SCH; FAMOTIDINE 20 MG TAB PO SCH; LR 15ML/HR IV SCH; METOCLOPRAMIDE HCL 10 MG TABLET PO SCH; MIDAZOLAM HCL 1 MG/ML 2ML VIAL ONE; Scopolamine 1 MG TDSY TD SCH; TRANEXAMIC ACID 1,000 MG **IV Pre-op IV SCH; ceFAZolin 2000MG 2,000 MG/15 ML SYR IV SCH; dexAMETHasone 4 MG TAB PO SCH; fentaNYL citrate 100 MCG/2 ML VIAL ONE
[2020-12-25] MEDS ORDERED: ONDANSETRON INJ 2 MG/ML 2 ML VIAL IV PRN ×2 (11:48→16:20)
[2020-12-25] MEDS ORDERED: ePHEDrine sulfate 50 MG/ML AMP IV PRN (11:48)
[2020-12-25] MEDS ORDERED: ATROPINE SULFATE 0.1 MG/ML 10ML SYR IV PRN (11:48)
--- NOTE | 2020-12-25 11:58 | History & Physical Bridge Note ---
Date of Service December 25, 2020 History & Physical Bridge Note I have examined the patient, reviewed the History & Physical and in the interval since the performance of the History & Physical I have noted the following changes of clinical significance: no changes noted
[2020-12-25] MEDS ORDERED: PROPOFOL IV EMULSION 10 MG/ML 20 ML VIAL IV ONE ×2 (13:12→14:26)
[2020-12-25] MEDS ORDERED: DEXAMETHASONE SOD INJ 4 MG/ML VIAL ONE ×2 (13:12→13:42)
[2020-12-25] MEDS ORDERED: PHENYLEPHRINE HCL 10 MG/ML VIAL ONE (13:12)
[2020-12-25] MEDS ORDERED: LIDOCAINE 2% 2 ML VIAL/AMP(20MG/ML) INFIL ONE (13:12)
[2020-12-25] MEDS ORDERED: ONDANSETRON INJ 2 MG/ML 2 ML VIAL ONE ×2 (13:12→14:16)
[2020-12-25] MEDS ORDERED: fentaNYL citrate 100 MCG/2 ML VIAL ONE (14:52)
--- NOTE | 2020-12-25 14:52 | Post Operative Brief Note ---
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 Surgeon Sage Payton Civil Lawyer Brett Patel PA-C Estimated Blood Loss 75 Findings Consistent with Post-Op Diagnosis
--- NOTE | 2020-12-25 15:02 | Operative Report ---
Post Operative Report Pre & Post Diagnosis Operation Date: 12/25/20 13:50 Pre-Op Diagnosis: Left shoulder osteoarthritis with rotator cuff tear Post-Op Diagnosis: Left shoulder osteoarthritis with rotator cuff tear I identified the patient and participated in the time-out.: Yes Procedure Operation Date: 12/25/20 13:50 Actual Procedures Left reverse Total Shoulder Arthroplasty (53091) Open biceps tenodesis (54676) - Sage Payton M.D. Surgeon Sage Payton [employer]or [employer] Brett Patel PA-C Estimated Blood Loss 75 Findings Consistent with Post-Op Diagnosis Specimens None Drains None Anesthesia Type General Regional Complications none Disposition Disposition: Recovery Room Indications Mr. Beatty is a 55-year-old male with severe pain in his left shoulder. History, clinical exam, and imaging were consistent with the above diagnosis. Risks, benefits, and alternatives of surgery were explained in detail. The patient understood all this and wished to proceed. Description of Procedure Components Implanted: Tornier Reverse Total Shoulder implants Perform glenoid baseplate: 29mm, 15 degree full wedge with 6.5mm central screw and 5.0mm peripheral screws Glenosphere: 39mm, +3mm, eccentric offset Ascend Flex humeral stem: 7B Standard length (90mm) Humeral tray: 3.5mm offset, +12mm thickness Polyethylene insert: 39mm, +9mm thickness Patient was identified in the preoperative holding area. Operative extremity was marked. Regional blockade was given by the Anesthesia Staff. Patient was then brought back to the operating room, and general anesthesia was induced without complication. Appropriate weight-based dose of Ancef was infused intravenously for antibiotic prophylaxis. The patient was then placed in the beachchair position. Left arm was then prepped and draped in a standard sterile fashion using Chlorhexidine prep. A standard deltopectoral incision was made through the skin and subcutaneous tissue. The cephalic vein was identified and retracted medially. Small branches to the deltoid were coagulated as necessary. The clavipectoral fascia was then incised and the subdeltoid space was opened. The rotator cuff was found to be deficient, and I therefore decided to perform a reverse total shoulder arthroplasty as planned preoperatively. The biceps tendon was identified within the bicipital groove and tenodesed at the superior border of the pectoralis tendon with #2 FiberWire suture. The biceps tendon was then divided proximal to the tenodesis site and the rotator interval was opened. The proximal portion of the biceps tendon was excised. The remaining subscapularis tendon was elevated subperiosteally off of the lesser tuberosity. The glenohumeral joint was then dislocated, and large osteophytes were debrided with a ronguer. Also noted within the shoulder joint was severe nodular synovitis that was aggressively debrided as it was encountered. There was also blue staining of cartilage remnants as well as the rotator cuff tendon, consistent with his ochronosis. The humeral head cut was then made in the appropriate inclination and version using the cutting guide. The intramedullary canal of the humerus was then opened with a canal finder. The humeral canal was then sequentially broached to the appropriate size. A protective cap was then placed on top of the humeral trial. I then turned my attention to the glenoid. The proximal stump of the biceps tendon was excised, along with the labrum circumferentially around the glenoid. The Blueprint drill guide was then positioned on the glenoid, and the guidepin was then inserted. The 15 degree angled reamer was then inserted over the guidepin and an reamed to an appropriate depth. The central screw hole was drilled, and appropriate length 6.5mm central screw was selected. The baseplate was then implanted into place according to our preoperative Blueprint plan by tightening down the central screw. A peripheral 5mm nonlocking screw was placed postero-superiorly first for additional compression of the baseplate, and then additional locking 5 mm peripheral screws were placed to complete fixation of the baseplate. Glenosphere was then impacted and secured. A trial humeral tray and insert were placed on the trial humeral stem, and a trial reduction was carried out. Once I achieved acceptable joint stability and range of motion with the trial implants, the final humeral implants were assembled on the back table and then impacted into position. I then took the shoulder through full range of motion to ensure good stability and acceptable motion. Wound was then copiously irrigated with sterile saline. Deep fascia was closed with 0 V-lock suture. Subcutaneous tissue was closed with 2-0 V-lock, and skin was closed with 3-0 V-lock. Skin was then sealed with Dermabond. Sterile dressings were then applied with a waterproof silver-impregnated dressing, and the arm was placed into a sling. The patient was awakened from anesthesia and taken to the Post Anesthesia Care Unit in stable condition. There were no immediate complications from the procedure. I was present and scrubbed for the entire procedure, with the exception of final skin closure and dressing application. Due to the complex nature of the procedure, the entire surgery was performed with the operational assistance of Brett Patel PA-C. The assistant director, under direct supervision, was involved in the performance of all aspects of the surgical procedure including patient positioning, tissue retraction, hemostasis, wound closure, and dressing application. I attest to the content of the Intraoperative Record and any orders documented therein. Any exceptions are noted below.
[2020-12-25] MEDS: fentaNYL citrate 100 MCG/2 ML VIAL IV PRN ×4 (15:34→15:49)
--- NOTE | 2020-12-25 16:04 | XRay Report ---
XR shoulder LT min 2V routine HISTORY: 55 years-old Male Post shoulder surgery left shoulder total joint arthroplasty COMPARISON: Chest radiographs 11/12/2020 TECHNIQUE: 2 views of the left shoulder FINDINGS: Reverse left shoulder total joint arthroplasty. Expected postoperative soft tissue swelling with deep tissue air. Mild AC joint osteoarthritis. Study is limited secondary to overlying bandage. No acute fracture, alignment or unexpected opaque foreign body. Hypoinflation with bronchovascular crowding. IMPRESSION: Reverse left shoulder total joint arthroplasty with expected postoperative changes. ACT 112: Negative or not required by law. The above report was generated using voice recognition software. It may contain grammatical, syntax o r spelling errors. Electronically signed by: Jeb Ibrahim M.D. 12/25/2020 4:03 PM
--- NOTE | 2020-12-25 16:10 | Anesthesiology Progress Note ---
Date of Service December 25, 2020 Anesthesia Post Procedure Vital Signs Vital Signs: Temp Pulse Resp BP Pulse Ox 12/25/20 16:00 97.7 F 88 15 125/85 95 12/25/20 15:50 83 15 111/83 95 12/25/20 15:40 81 19 108/85 100 12/25/20 15:30 87 19 102/77 100 12/25/20 15:20 84 20 113/89 100 12/25/20 15:13 97.0 F L 78 14 117/74 100 Pain Intensity Left Shoulder: Pain Intensity: 6 Back: Pain Intensity: 5 Transfer of Care Handoff Completed per policy Notes Mental Status: alert / awake / arousable and participated in evaluation Patient Amnestic to Procedure: Yes Nausea / Vomiting: adequately controlled Pain: adequately controlled Airway Patency, RR, SpO2: stable & adequate BP & HR: stable & adequate Hydration State: stable & adequate Anesthetic Complications: no major complications apparent and Pt Satisfied with anesthetic care
[2020-12-25] MEDS ORDERED: MAGNESIUM HYDROXIDE SUSP 30 ML UDC PO PRN (16:20)
[2020-12-25] MEDS ORDERED: METOCLOPRAMIDE HCL INJ 5 MG/ML 2 ML VIAL IV PRN (16:20)
[2020-12-25] MEDS ORDERED: NALOXONE HCL 0.4 MG/1 ML VIAL/CARP IV PRN (16:20)
[2020-12-25] MEDS ORDERED: oxyCODONE HCL IR 5 MG TAB (IMMEDIATE RELEASE) PO PRN (16:20)
[2020-12-25] MEDS ORDERED: bisacodyL 10 MG SUPP PR PRN (16:20)
[2020-12-25] MEDS: Scopolamine CHECK PATCH PLACEMENT SCH (17:05)
[2020-12-25] MEDS: SODIUM CHLORIDE 0.9% 1000ML 1,000 ML IV SCH (17:05)
[2020-12-25] MEDS: ACETAMINOPHEN 500 MG TAB PO SCH ×2 (18:28→20:56)
[2020-12-25] MEDS: IBUPROFEN 600 MG TAB PO SCH (18:29)
--- NOTE | 2020-12-25 18:41 | Orthopedic Progress Note ---
Date of Service December 25, 2020 Assessment & Plan (1) Primary osteoarthritis, left shoulder: Postoperative day 0 status post left reverse total shoulder arthroplasty doing very well. Antibiotics x24 hours. May do active range of motion as tolerated once his nerve block wears off. No resisted elbow flexion or resisted forearm supination. Plan for likely discharge home tomorrow. Follow-up in orthopedics clinic in 10 to 14 days. Admission and Anticipated Discharge Date Admission Date: December 25, 2020 Subjective Postop check. Patient doing very well. Denies any pain in his shoulder. Eating and drinking well without any nausea or vomiting. His nerve block is already wearing off, as he has very good motion in his hand already. Physical Exam Physical Exam: Left shoulder dressings are clean, dry, and intact. Results & Data ([facility]) Vital Signs (Past 12 Hours) Vital Signs Temp Pulse Pulse Resp BP Pulse Ox 12/25/20 17:30 36.2 C L 96 H 18 122/85 100 12/25/20 16:55 36.5 C 100 H 18 120/77 99 12/25/20 16:20 36.3 C L 95 H 18 117/79 100 12/25/20 16:00 36.5 C 88 15 125/85 95 12/25/20 15:50 83 15 111/83 95 12/25/20 15:40 81 19 108/85 100 12/25/20 15:30 87 19 102/77 100 12/25/20 15:20 84 20 113/89 100 12/25/20 15:13 36.1 C L 78 14 117/74 100
[2020-12-25] MEDS: ceFAZolin 2000MG 2,000 MG/15 ML SYR IV SCH (20:06)
[2020-12-25] MEDS: DOCUSATE SODIUM 100 MG CAP PO SCH (20:56)
[2020-12-25] MEDS ORDERED: SENNA 8.6 MG TAB PO SCH (21:00)
[2020-12-26] MEDS: ACETAMINOPHEN 500 MG TAB PO SCH ×3 (00:20→07:35)
[2020-12-26] MEDS: IBUPROFEN 600 MG TAB PO SCH ×2 (00:20→05:00)
[2020-12-26] MEDS: Scopolamine CHECK PATCH PLACEMENT SCH ×2 (00:20→07:38)
[2020-12-26] MEDS: SODIUM CHLORIDE 0.9% 1000ML 1,000 ML IV SCH (03:04)
[2020-12-26] MEDS: ceFAZolin 2000MG 2,000 MG/15 ML SYR IV SCH (04:58)
[2020-12-26 06:28] LABS: Basophils # (auto) 0.01 K/uL (0-0.2); Basophils % (auto) 0.1 %; Hematocrit (blood only) 35.5 % (42-52); Hemoglobin 12.1 g/dL (14.0-18.0); Immature Granulocytes # (auto) 0.03 K/uL (0.00-0.02); Immature Granulocytes % (auto) 0.3 %; Lymphocytes # (auto) 0.86 K/uL (1.2-3.4); Lymphocytes % (auto) 7.3 %; Mean Corpuscular Hgb Conc 34.1 g/dL (32-36); Mean Corpuscular Volume 93.9 fL (80-100); Monocytes # (auto) 1.09 K/uL (0.11-0.59); Monocytes % (auto) 9.3 %; Neutrophils # (auto) 9.74 K/uL (1.4-6.5); Platelet Count 346 K/uL (130-400); RDW Coefficient of Variation 13.3 % (11.5-14.5); RDW Standard Deviation 45.8 fL (36.4-46.3); Red Blood Count 3.78 M/uL (4.7-6.1); White Blood Count 11.73 K/uL (4.8-10.8)
[2020-12-26 07:03] LABS: BUN Creatinine Ratio 19.4 (10-20); Calcium 9.4 mg/dl (8.5-10.1); Creatinine Clr Calc Pharmacy 115.2 ml/min; Est GFR (African American) 118.6 ml/min; Est GFR (Non-African American) 102.3 ml/min; Potassium 4.1 mmol/L (3.5-5.1)
[2020-12-26] MEDS: DOCUSATE SODIUM 100 MG CAP PO SCH (07:36)
--- NOTE | 2020-12-26 08:12 | Orthopedic Progress Note ---
Date of Service December 26, 2020 Assessment & Plan (1) Status post reverse arthroplasty of left shoulder: Admission and Anticipated Discharge Date Admission Date: December 25, 2020 55 yo male stable POD #1 s/p left reverse TSA 1. Med management 2. DVT prophylaxis- ASA, SCDs 3. PT/OT 4. D/C planning- home w/ OPPT Subjective Pt resting in bed, pain controlled, denies complaints Physical Exam Physical Exam: Silverlon dressing in place, fingers mobile, NVI Results & Data ([facility]) Vital Signs (Past 12 Hours) Vital Signs Temp Pulse Resp BP Pulse Ox 12/26/20 07:21 37.0 C 92 H 16 139/92 98 12/26/20 03:18 36.4 C L 90 16 124/79 97 12/26/20 00:00 37.0 C 105 H 17 123/85 96 12/25/20 21:43 36.9 C 99 H 16 130/81 98 Laboratory Results 12/26/20 12/26/20 12/25/20 Range/Units 05:28 05:28 Unknown WBC 11.73 H (4.8-10.8) K/uL RBC 3.78 L (4.7-6.1) M/uL Hgb 12.1 L (14.0-18.0) g/dL Hct 35.5 L (42-52) % MCV 93.9 (80-100) fL MCH 32.0 (25-34) pg MCHC 34.1 (32-36) g/dL RDW Std Deviation 45.8 (36.4-46.3) fL RDW Coeff of Kae 13.3 (11.5-14.5) % Plt Count 346 (130-400) K/uL MPV 9.0 (7.4-10.4) fL Immature Gran % (Auto) 0.3 % Neut % (Auto) 83.0 % Lymph % (Auto) 7.3 % Candler % (Auto) 9.3 % Eos % (Auto) 0.0 % Baso % (Auto) 0.1 % Neut # (Auto) 9.74 H (1.4-6.5) K/uL Lymph # (Auto) 0.86 L (1.2-3.4) K/uL Candler # (Auto) 1.09 H (0.11-0.59) K/uL Eos # (Auto) 0.00 (0-0.5) K/uL Baso # (Auto) 0.01 (0-0.2) K/uL Immature Gran # (Auto) 0.03 H (0.00-0.02) K/uL Sodium 134 L (136-145) mmol/L Potassium 4.1 (3.5-5.1) mmol/L Chloride 103 (98-107) mmol/L Carbon Dioxide 26 (21-32) mmol/L Anion Gap 5.0 (3-11) BUN 15 (7-18) mg/dl Creatinine 0.78 (0.6-1.4) mg/dl Est Cr Clr Drug Dosing 115.2 ml/min Est GFR ( Amer) 118.6 ml/min Est GFR (Non-Af Amer) 102.3 ml/min BUN/Creatinine Ratio 19.4 (10-20) Glucose 97 (70-99) mg/dl Calcium 9.4 (8.5-10.1) mg/dl COVID-19 Eval Order SARS-CoV-2, RNA, NAAT NEGATIVE (NEGATIVE) 12/25/20 Range/Units Unknown WBC (4.8-10.8) K/uL RBC (4.7-6.1) M/uL Hgb (14.0-18.0) g/dL Hct (42-52) % MCV (80-100) fL MCH (25-34) pg MCHC (32-36) g/dL RDW Std Deviation (36.4-46.3) fL RDW Coeff of Kae (11.5-14.5) % Plt Count (130-400) K/uL MPV (7.4-10.4) fL Immature Gran % (Auto) % Neut % (Auto) % Lymph % (Auto) % Candler % (Auto) % Eos % (Auto) % Baso % (Auto) % Neut # (Auto) (1.4-6.5) K/uL Lymph # (Auto) (1.2-3.4) K/uL Candler # (Auto) (0.11-0.59) K/uL Eos # (Auto) (0-0.5) K/uL Baso # (Auto) (0-0.2) K/uL Immature Gran # (Auto) (0.00-0.02) K/uL Sodium (136-145) mmol/L Potassium (3.5-5.1) mmol/L Chloride (98-107) mmol/L Carbon Dioxide (21-32) mmol/L Anion Gap (3-11) BUN (7-18) mg/dl Creatinine (0.6-1.4) mg/dl Est Cr Clr Drug Dosing ml/min Est GFR ( Amer) ml/min Est GFR (Non-Af Amer) ml/min BUN/Creatinine Ratio (10-20) Glucose (70-99) mg/dl Calcium (8.5-10.1) mg/dl COVID-19 Eval [facility] SARS-CoV-2, RNA, NAAT (NEGATIVE)
[2020-12-26] MEDS ORDERED: hydroCHLOROthiazide 25 MG TAB PO SCH (09:00)
[2020-12-26] MEDS ORDERED: MULTIVITAMIN TAB PO SCH (09:00)
[2020-12-26] MEDS ORDERED: LOSARTAN POTASSIUM 50 MG TAB PO SCH (09:00)
--- NOTE | 2020-12-26 11:41 | Discharge Summary ---
Date of Service December 26, 2020 Admission HPI Per Admitting Provider Mr. Beatty is a 54-year-old [id number] male with left shoulder pain. This is been bothering him for many years, but has gotten quite severe in the past 3 years. 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 Gould. He is also had a right total shoulder arthroplasty back in 2012 with good results; it sounds like this was an anatomic total shoulder. He reports several injections in his left shoulder, but none in the past 5 to 7 years. They were minimally beneficial for him in the past. This pain has progressed to the point where he really would like to pursue a total shoulder on this side as well. Principal Diagnosis Left shoulder osteoarthritis with rotator cuff tear Discharge Data Allergies Allergy/AdvReac Type Severity Reaction Status Date / Time etodolac Allergy Mild ITCHINESS Verified 12/25/20 12:14 morphine AdvReac Intermediate vomiting Verified 12/25/20 12:14 Procedures Performed Operation Date: 12/25/20 13:50 Actual Procedures p Left Total Shoulder Arthroplasty(Left) - Sage Payton M.D. Ordered Studies 12/25/20 05:00 US - OR guided needle placemen Routine Hospital Course (1) Status post reverse arthroplasty of left shoulder: Patient underwent a left reverse total shoulder arthroplasty on the date of admission. Patient tolerated the procedure well and was transferred up to the general orthopedic surgery floor in stable condition. Perioperative antibiotic coverage was initiated, and continued for 24 hours postoperatively. DVT prophylaxis was initiated consisting of SCDs and aspirin 325 mg daily. Perioperative pain control regimen was transitioned to strictly oral pain medications by postoperative day 1. On postoperative day 1 the patient was doing very well. Pain was well controlled, and patient was mobilizing well with therapy. Patient was determined be safe and ready for discharge to home. Total Time Total Time Spent Total Time Spent (In Minutes): 15 Discharge Plan Discharge Items Patient Disposition: Home - Self-Care Reason For Visit: Primary Osteoarthritis, Left Shoulder Discharge Diagnosis: Left shoulder osteoarthritis with rotator cuff tear Activity: Per Instructions section Non-emergency contact: Surgeon Call non-emergency contact if: your pain is not controlled, your temperature is above 101.5, your wound has increased redness and your wound has increased drainage Follow-up/Referrals: Sage Payton M.D. [Physician] - Sarah Loredo D.O. [Primary Care Provider] - Diet: Regular Addtl Attending Provider Instructions: Things to Watch Out For -Go to the Emergency Room if you have sudden onset of nausea, vomiting, chest pain, shortness of breath, or uncontrollable pain. -Call the clinic or go to the Emergency Room if you have a sudden increase in the amount of wound drainage or the drainage becomes thick, yellow or green, or foul-smelling. -For routine questions, call the clinic at [phone] during regular business hours (8am-5pm). For urgent issues after regular business hours, you may call the clinic to be connected to the on-call physician. Dressings -A special waterproof, silver-impregnated dressing was placed on your shoulder. Keep this dressing in place for 1 week after surgery. You may shower with the waterproof dressing in place, but do not soak the dressing in the bathtub or pool. -One week after surgery, you may remove the waterproof dressing. You may continue to shower, and let water run BRIEFLY over the incision, but do not soak the incision in the bathtub or pool for 2 weeks. You may also gently clean the incision with mild soap and water; pat the incision dry after cleaning-do not rub the incision. Apply a new dressing daily thereafter. Shoulder Exercises -Keep your operative shoulder in the sling for comfort, except as detailed below. -You should come out of the sling 4-5 times a day for passive pendulum exercises: lean over and swing your arm in a circular pattern. -You should also do active-assisted forward flexion exercises: use your opposite hand to lift your operative arm forward to 90 degrees. -Do not flex your elbow (curl motion) or supinate your forearm (rotating palm up) against resistance. -Do not use your arm to push yourself up out of bed or up from a seated position. Ice Pack -You may use an ice pack for pain relief. You should use it 20-30 minutes at a time. Place a towel between the ice pack and your skin to prevent frostbite. -You should use the ice pack fairly regularly for the first 1-2 weeks after surgery to help reduce pain and inflammation. -About 2 weeks after your surgery, you should start using heat to loosen up your shoulder prior to doing your stretching exercises, then use the cooling sleeve after your exercises are complete to reduce swelling and pain. Pain Medicines -Your prescriptions for pain medications have already been sent to the pharmacy on file at [facility]. -You have been prescribed an anti-inflammatory (Motrin/ibuprofen) and a non- narcotic pain medicine (Tylenol/acetaminophen). These are your primary pain medications. Take them each every 6 hours as instructed. It is recommended that you stagger these medicines every 3 hours (i.e. take ibuprofen at 8:00 am, then acetaminophen at 11:00 am, then ibuprofen at 2:00 pm, etc) -DO NOT take any additional anti-inflammatories (Advil, Aleve/naproxen, Mobic/meloxicam, Celebrex) or any additional Tylenol/acetaminophen products with these prescribed medications. -You have also been prescribed an additional narcotic pain medication (oxycodone). Take this medicine ONLY for breakthrough pain not controlled by the ibuprofen and acetaminophen. -Do not drive or operate heavy machinery while taking the narcotic medication. -Common side effects of narcotic pain medicines include itching, nausea, constipation, and feeling "loopy". However, if you develop a rash or hives, stop taking the medicine and call the clinic. If you develop swelling in your throat or difficulty breathing, go to the Emergency Room or call 911 IMMEDIATELY. -You may take over the counter stool softeners if needed for constipation. Aspirin -Take a full strength (325mg) aspirin every day for 4 weeks (28 days) to prevent blood clots. -If you were taking a baby aspirin (81mg) prior to surgery, you may resume taking this 81mg dose after you complete the 28-day course of the 325mg strength dose; do not take the 325mg dose in addition to your 81mg dose. -Be aware that you will bruise easier while taking Aspirin; this is normal. However, if you develop a significantly large area of swelling after an injury, or have a cut that will not stop bleeding, call the clinic or go to the Emergency Room immediately. Pending Studies at Discharge: No Stand-Alone Forms: My [facility] Medications and UT Order Prescriptions: Continued hydrochlorothiazide 25 mg Tablet 25 mg PO QAM RF: 0 losartan 100 mg Tablet 100 mg PO QAM RF: 0 Discontinued diphenhydramine-acetaminophen [Tylenol PM Extra Strength] 25-500 mg Tablet 3 - 4 tab PO HS PRN (Reason: Sleep) RF: 0 acetaminophen 500 mg Tablet 1,000 mg PO Q8 PRN (Reason: pain/fever) Qty: 90 RF: 0 ibuprofen 200 mg Tablet 600 mg PO QAM RF: 0 Discharge Orders: Discharge Order (Routine); Ordered 12/26/20 Ordered By: Brett Pringle/Other Patient Handouts: After Reverse Total Shoulder ... Admission Data Admit Date/Time: 12/25/20 15:48 Attending Provider: Sage Payton Admit Provider: Sage Payton Primary Care Provider: Sarah Loredo Other Interventions: Discharge Summary Assessment (RN) Last Done: 12/26/20 08:35
== END 2020-12-26 10:29 | disposition home or self-care (01) ==
LOC: ASU 11:43 → 3W 15:48